=== PATIENT | male | born 1965 | race African-American/Black ===

== ENCOUNTER 2021-11-25 16:51 | Inpatient (IN) ==
[2021-11-25 16:58] VITALS: BMI 25.7
[2021-11-25] MEDS ORDERED: NS 1,000 ML IV 1,000 ML IV ONE (17:11)
[2021-11-25] MEDS ORDERED: NS 1,000 ML IV 1,000 ML ONE ×2 (17:12→21:47)
--- NOTE | 2021-11-25 17:37 | DR.GENAD ---
HPI Time Seen Time Seen by Provider: 11/25/21 17:23 PCP Primary Care Physician: KAMALJIT COLVIN HPI Comment HPI Comment: A 56 y/o male presenting with c/o generalized bodyaches, light headedness and weakness for 3 weeks. He had gone to the [facility] to be seen about a week ago and he was placed on an antibiotics for UTI. He had been in a hospital and then rehab. facility in [place], [place] for 2 months earlier this year and he came back home in July,. He was with healthcare provider today and a pulse could not be palpated in the Lt. foot, his left leg was warm, thus it was suggested that he goes to an ED to be seen. Complaint/Symptoms Chief Complaint:: STATES WITHIN THE PAST 2-3 WEEKS PT. HAS BEEN GETTING SICKER. SHE STATES PT. HAS AN UNSTEADY GAIT. PT. HAS HAD BLE SWELLING. PT. SEEN KAMALJIT MARII IN THE OFFICE TODAY AND STATES SHE COULD NOT PALPATE A PULSE TO RIGHT FOOT. SHE STATES THE LEFT LOWER EXREMITY WAS WARM TO TOUCH. STATES PT. HAS FALLEN RECENTLY. PT. C/O GENERALIZED PAIN, BLURRED VISION AND DIZZINESS. PT. WENT TO [facility] LAST WEEK AND HAD A URINARY CATHETER PLACED DUE TO URINARY RETENTION AND WAS DIAGNOSED WITH A UTI WHICH HE IS CURRENTLY TAKING ANTIBIOTICS FOR. COVID-19 Coronavirus risk:travel/contact w/high risk person: No Has patient experienced Coronavirus symptoms: No Nurses notes reviewed Nurses Notes Review: Yes Source History Provided: Patient and Family Member Mode of Arrival Mode of Arrival: Wheelchair Timing Onset of Chief Complaint: 11/04/21 Came on: Gradually PMH PMH Past Medical History: Yes Past Medical History: Diabetes Past Surgical History: Yes Surgical History: Other Family History History of Family Medical Conditions: Yes Family Medical History: Diabetes Mellitus Social History Does patient currently use any type of tobacco product: No Have you used tobacco products in the last 12 months: No Type of Tobacco Use: None Does any household member use tobacco: No Alcohol Use: None Do you use any recreational Drugs:: No Lives With: Spouse Lives Where: Home Travel Risk Coronavirus risk:travel/contact w/high risk person: No Has patient experienced Coronavirus symptoms: No Infectious screening In the last 2 months have you had wt loss of >10#?: NO Have you had fever, night sweats or hemotysis?: No Have you traveled outside the country in the last 6 months?: No Isolation: Standard ROS Review of Systems Constitutional: Weakness and Fatigue Eyes: No Symptoms Reported ENTM: No Symptoms Reported Respiratoy: No Symptoms Reported Cardiovascular: No Symptoms Reported Gastrointestinal/Abdominal: No Symptoms Reported Genitourinary: No Symptoms Reported Neurological: Weakness and Other (Light headed) Musculoskeletal: Other (bodyaches) Integumentary: No Symptoms Reported Hematologic/Lymphatic: No Symptoms Reported Endocrine: No Symptoms Reported Psychiatric: No Symptoms Reported All Other Systems: Reviewed and Negative PE Vital Signs Vitals: Temperature 99.2 F Pulse Rate 96 Respiratory Rate 17 Blood Pressure 114/62 O2 Sat by Pulse Oximetry 99 General Limitations: No Limitations General Appearance: Alert and In No Apparent Distress Head Head Exam: Normal Inspection, Atraumatic and Normocephalic Eyes Eye exam: Normal Appearance and EOMI ENT ENT Exam: Normal Exam, Normal Oropharynx, Normal External Ear Exam, Mucous Membranes Moist and TM's Normal Bilaterally TM/Canal Exam: Bilateral: Normal Neck Neck Exam: Normal Inspection, Full ROM and Trachea Midline Chest Chest Inspection: Normal Inspection and Symmetric Chest Wall Rise Respiratory Respiratory Exam: Normal Lung Sounds Bilat Respiratory Exam: Bilateral: Clear to Auscultation Cardiovascular Cardiovascular Exam: Regular Rate, Normal Rhythm, Normal Heart Sounds, +S1 and +S2 Abdominal Exam Abdominal Exam: Normal Inspection, Normal Bowel Sounds and Soft Extremities Extremities Exam: Normal Inspection and Full ROM Back Back Exam: Normal Inspection and Full ROM Neurologic Neurological Exam: Alert and Oriented X3 Psychiatric Psychiatric Exam: Normal Affect and Normal Mood Skin Skin Exam: Dry, Intact and Normal Color COURSE Treatment Treatment: I have reviewed the pt's. test results with him and his significant other. I recommended in-house placement for further evaluation and treatment. He is okay with my recommendation. I discussed presentation and findings with Dr. BABIN and he agrees with proposed plan of care. Admit orders have been written. Reevaluation 1st: Improved Education/Counseling Education/Counseling: Patient, Family, Education and Counseling Educated On: Treatment, Diagnosis, Prognosis and Needs for Follow Up ROR Labs Reviewed Laboratory Results Reviewed?: Yes Result Diagrams: 11/25/21 17:05 11/25/21 17:05 Laboratory: WBC 28.9 X10^3/uL (3.6-10.0) H 11/25/21 17:05 RBC 3.88 X10^6/uL (4.7-6.0) L 11/25/21 17:05 Hgb 10.7 g/dL (13.5-18.0) L 11/25/21 17:05 Hct 31.8 % (42.0-54.0) L 11/25/21 17:05 MCV 82.1 fL (80.0-100.0) 11/25/21 17:05 MCH 27.6 pg (27.0-34.0) 11/25/21 17:05 MCHC 33.7 g/dL (33.0-35.0) 11/25/21 17:05 RDW 13.8 % (11.6-16.5) 11/25/21 17:05 Plt Count 353 X10^3/uL (150.0-450.0) 11/25/21 17:05 Plt Count Comment Adequate (ADEQUATE) 11/25/21 17:05 MPV 9.1 fL (7.4-11.0) 11/25/21 17:05 Neut % (Auto) 87.4 % (42.0-75.0) H 11/25/21 17:05 Lymph % (Auto) 6.2 % (21.0-51.0) L 11/25/21 17:05 [place] % (Auto) 5.5 % (0.0-13.0) 11/25/21 17:05 Eos % (Auto) 0.2 % (0.9-2.9) L 11/25/21 17:05 Baso % (Auto) 0.7 % (0.2-1.0) 11/25/21 17:05 Neut # (Auto) 25.2 x10^3/uL (2.2-4.8) H 11/25/21 17:05 Lymph # (Auto) 1.8 X10^3/uL (1.3-2.9) 11/25/21 17:05 [place] # (Auto) 1.6 x10^3/uL (0.3-0.8) H 11/25/21 17:05 Eos # (Auto) 0.1 x10^3/uL (0.0-0.2) 11/25/21 17:05 Baso # (Auto) 0.2 X10^3/uL (0.0-0.1) H 11/25/21 17:05 Absolute Nucleated RBC 0.0 /100WBC 11/25/21 17:05 Total Counted 100 11/25/21 17:05 Neutrophils % (Manual) 86 % (39-76) H 11/25/21 17:05 Lymphocytes % (Manual) 10 % (13-43) L 11/25/21 17:05 Monocytes % (Manual) 4 % (4-9) 11/25/21 17:05 Plt Morphology Comment Normal (NORMAL) 11/25/21 17:05 RBC Morphology Normal (NORMAL) 11/25/21 17:05 Sodium 128 mmol/L (136-145) L 11/25/21 17:05 Corrected Sodium 133 mmol/L (136-145) L 11/25/21 17:05 Potassium 4.1 mmol/L (3.5-5.1) 11/25/21 17:05 Chloride 93 mmol/L (98-107) L 11/25/21 17:05 Carbon Dioxide 26.5 mmol/L (21-32) 11/25/21 17:05 BUN 25 mg/dL (7-18) H 11/25/21 17:05 Creatinine 1.69 mg/dL (0.70-1.30) H 11/25/21 17:05 Est GFR (MDRD) Af Amer 54 (>60) L 11/25/21 17:05 Est GFR (MDRD) Non-Af 45 (>60) L 11/25/21 17:05 Glucose 295 mg/dL (65-99) H 11/25/21 17:05 Lactic Acid 2.4 mmol/L (0.4-2.0) H 11/25/21 17:05 Calcium 9.3 mg/dL (8.5-10.1) 11/25/21 17:05 Corrected Calcium 10.3 mg/dL (8.5-10.1) H 11/25/21 17:05 Total Bilirubin 0.40 mg/dL (0.2-1.0) 11/25/21 17:05 AST 15 Units/L (15-37) 11/25/21 17:05 ALT 13 Units/L (12-78) 11/25/21 17:05 Alkaline Phosphatase 130 Units/L (46-116) H 11/25/21 17:05 Total Protein 9.3 g/dL (6.4-8.2) H 11/25/21 17:05 Albumin 2.7 g/dL (3.4-5.0) L 11/25/21 17:05 Globulin 6.6 g/dL (2.5-4.5) H 11/25/21 17:05 Albumin/Globulin Ratio 0.4 Ratio (1.1-2.1) L 11/25/21 17:05 Specimen Type Clean catch urine 11/25/21 18:11 Urine Color Pale yellow (YELLOW) 11/25/21 18:11 Urine Appearance Clear (CLEAR) 11/25/21 18:11 Urine pH 6.0 (5.0 - 8.0) 11/25/21 18:11 Ur Specific [place] 1.020 (1.000-1.030) 11/25/21 18:11 Urine Protein 3+ (NEGATIVE) 11/25/21 18:11 Urine Glucose (UA) 4+ (NEGATIVE) 11/25/21 18:11 Urine Ketones 1+ (NEGATIVE) 11/25/21 18:11 Urine Blood 4+ (NEGATIVE) 11/25/21 18:11 Urine Nitrite Negative (NEGATIVE) 11/25/21 18:11 Urine Bilirubin Negative (NEGATIVE) 11/25/21 18:11 Urine Urobilinogen Normal (NORMAL) 11/25/21 18:11 Ur Leukocyte Esterase Negative (NEGATIVE) 11/25/21 18:11 Urine RBC 5-10 /HPF (0-3) A 11/25/21 18:11 Urine WBC None seen /HPF (0-5) 11/25/21 18:11 Ur Squamous Epith Cells Rare /HPF (NEGATIVE) 11/25/21 18:11 Urine Bacteria Trace /HPF (NEGATIVE) 11/25/21 18:11 Urine Yeast Few /HPF (NEGATIVE) 11/25/21 18:11 Ur Culture Indicated? No/not indicated 11/25/21 18:11 SARS-CoV-2 (PCR) Negative (NEGATIVE) 11/25/21 17:11 Influenza Type A (PCR) Negative (NEGATIVE) 11/25/21 17:11 Influenza Type B (PCR) Negative (NEGATIVE) 11/25/21 17:11 RSV (PCR) Negative (NEGATIVE) 11/25/21 17:11 XRAY XRAY Interpreted by: Self X-ray Results: CXR: No gross infiltrate, noted. There is no cardiomegaly. Radiology report is pending. Opioid Opioid Risk Tool Age (Collin box if 16-45): No History of Preadolescent Sexual Abuse: No Total: 0 Total Score Risk Category: Low Risk Copyright: [facility] predicting aberrant behaviors Discharge Plan Diagnosis Discharge Problem: Neutrophilic leukocytosis, Acute hyponatremia, Dehydration Discharge Plan Patient Disposition: ADMITTED INPATIENT Condition: Stable Health Concerns: Post Hospitalization: new medications and changes needed to prevent readmission or further decline. Pt educated and given instructions on all concerns. Plan of Treatment: Continue with present treatment and follow up plan. Pt is to keep follow up appointment as instructed and take medications as ordered. Orders to Discharge Patient Discharge Orders: Transfer (Routine); Ordered 11/25/21 Ordered By: WENDY CHOWDHURY Follow ups/Referrals Follow ups/Referrals: DOUG HONEYCUTT [Primary Care Provider] - 3 days ADDITIONAL NOTES Additional Notes Additional Notes: Name: Jaycee SOSA#: [id number]: [id number]: 1965Sex: MLocation: EROrder Number(s): [id number](s):CHEST, 1 VIEW Ordering Physician: WENDY CHOWDHURY Primary Care: DOUG HONEYCUTT Service Date: 11/25/21 Service Time: 1723 HISTORY C/O GENERALIZED PAIN, BLURRED VISION AND DIZZINESS. Relevant Clinical Information STUDY CHEST, 1 VIEW COMPARISON FINDINGS The trachea is midline. The cardiac silhouette is unremarkable. The lungs are clear without focal infiltrate or effusion. The bony thorax is unremarkable. IMPRESSION No acute cardiopulmonary findings . Electronically signed by: Arley Bird (Nov 25, 2021 17:51:17) Report Electronically signed: 11/25/21 0632 CC: Wendy Chowdhury
[2021-11-25 17:39] LABS: BASOPHILS # (AUTO) 0.2 X10^3/uL (0.0-0.1); BASOPHILS % (AUTO) 0.7 % (0.2-1.0); EOSINOPHILS # (AUTO) 0.1 x10^3/uL (0.0-0.2); EOSINOPHILS % (AUTO) 0.2 % (0.9-2.9); HEMATOCRIT 31.8 % (42.0-54.0); HEMOGLOBIN 10.7 g/dL (13.5-18.0); LYMPHOCYTES # (AUTO) 1.8 X10^3/uL (1.3-2.9); LYMPHOCYTES % (AUTO) 6.2 % (21.0-51.0); MEAN CORPUSCULAR HEMOGLOBIN 27.6 pg (27.0-34.0); MEAN CORPUSCULAR HGB CONC 33.7 g/dL (33.0-35.0); MEAN CORPUSCULAR VOLUME 82.1 fL (80.0-100.0); MEAN PLATELET VOLUME 9.1 fL (7.4-11.0); MONOCYTES # (AUTO) 1.6 x10^3/uL (0.3-0.8); MONOCYTES % (AUTO) 5.5 % (0.0-13.0); NEUTROPHILS # (AUTO) 25.2 x10^3/uL (2.2-4.8); NEUTROPHILS % (AUTO) 87.4 % (42.0-75.0); RED BLOOD COUNT 3.88 X10^6/uL (4.7-6.0); RED CELL DISTRIBUTION WIDTH 13.8 % (11.6-16.5); WHITE BLOOD COUNT 28.9 X10^3/uL (3.6-10.0)
[2021-11-25 17:50] LABS: ALBUMIN 2.7 g/dL (3.4-5.0); CALCIUM 9.3 mg/dL (8.5-10.1); CARBON DIOXIDE 26.5 mmol/L (21-32); COR CA(FOR HYPOALB) 10.3 mg/dL (8.5-10.1); CREATININE 1.69 mg/dL (0.70-1.30); TOTAL PROTEIN 9.3 g/dL (6.4-8.2)
--- NOTE | 2021-11-25 17:52 | RAD ---
HISTORYC/O GENERALIZED PAIN, BLURRED VISION AND DIZZINESS. Relevant Clinical InformationSTUDYCHEST, 1 VIEWCOMPARISONFINDINGSThe trachea is midline. The cardiac silhouette is unremarkable. The lungs are clear without focal infiltrate or effusion. The bony thorax is unremarkable.IMPRESSIONNo acute cardiopulmonary findings .Electronically signed by: Arley Bird (Nov 25, 2021 17:51:17)
[2021-11-25 17:58] LABS: PLATELET MORPHOLOGY COMMENT NORMAL (NORMAL)
[2021-11-25 18:30] LABS: BILIRUBIN,URINE NEGATIVE (NEGATIVE); BLOOD/HEMOGLOBIN,URINE 4+ (NEGATIVE); GLUCOSE, URINE 4+ (NEGATIVE); KETONES,URINE 1+ (NEGATIVE); LEUKOCYTE ESTERASE ,URINE NEGATIVE (NEGATIVE); NITRITES,URINE NEGATIVE (NEGATIVE); PROTEIN,URINE 3+ (NEGATIVE); UROBILINOGEN,URINE NORMAL (NORMAL)
[2021-11-25 18:43] LABS: APPEARANCE,URINE CLEAR (CLEAR); COLOR,URINE PALE YELLOW (YELLOW)
[2021-11-25 18:44] LABS: BACTERIA,URINE TRACE /HPF (NEGATIVE); SQUAMOUS EPITHELIAL CELL,UR RARE /HPF (NEGATIVE); YEAST,URINE FEW /HPF (NEGATIVE)
[2021-11-25] MEDS ORDERED: ZOSYN VIAL 3.375 GRAMS IV ONE (21:47)
[2021-11-25] MEDS ORDERED: NS 100 ML IV 100 ML ONE (21:48)
[2021-11-25] MEDS: NS 1,000 ML IV 1,000 ML IV SCH (21:55)
[2021-11-25] MEDS: ZOSYN VIAL 3.375 GRAMS 3.375 G in NS 100 ML IV 100 ML IV SCH ×2 (21:56→23:57)
[2021-11-26] MEDS: NovoLIN R (or HumuLIN R) SUBCUT PRN ×4 (00:01→20:41)
[2021-11-26] MEDS: NS 1,000 ML IV 1,000 ML IV SCH ×4 (05:23→20:41)
[2021-11-26] MEDS: ZOSYN VIAL 3.375 GRAMS 3.375 G in NS 100 ML IV 100 ML IV SCH (05:28)
[2021-11-26 06:26] LABS: BASOPHILS % (AUTO) 0.2 % (0.2-1.0); EOSINOPHILS # (AUTO) 0.2 x10^3/uL (0.0-0.2); EOSINOPHILS % (AUTO) 0.9 % (0.9-2.9); HEMATOCRIT 27.7 % (42.0-54.0); HEMOGLOBIN 9.4 g/dL (13.5-18.0); LYMPHOCYTES # (AUTO) 2.2 X10^3/uL (1.3-2.9); LYMPHOCYTES % (AUTO) 10.1 % (21.0-51.0); MEAN CORPUSCULAR HGB CONC 33.9 g/dL (33.0-35.0); MEAN CORPUSCULAR VOLUME 82.5 fL (80.0-100.0); MEAN PLATELET VOLUME 8.7 fL (7.4-11.0); MONOCYTES % (AUTO) 9.2 % (0.0-13.0); NEUTROPHILS # (AUTO) 17.8 x10^3/uL (2.2-4.8); NEUTROPHILS % (AUTO) 79.6 % (42.0-75.0); RED BLOOD COUNT 3.35 X10^6/uL (4.7-6.0); RED CELL DISTRIBUTION WIDTH 13.8 % (11.6-16.5); WHITE BLOOD COUNT 22.3 X10^3/uL (3.6-10.0)
[2021-11-26 06:39] LABS: ALANINE AMINOTRANSFERASE 12 Units/L (12-78); ALBUMIN 2.1 g/dL (3.4-5.0); ALKALINE PHOSPHATASE 109 Units/L (46-116); ASPARTATE AMINO TRANSFERASE 14 Units/L (15-37); BLOOD UREA NITROGEN 18 mg/dL (7-18); CALCIUM 8.5 mg/dL (8.5-10.1); CHLORIDE 99 mmol/L (98-107); COR NA(FOR HYPERGLY) 138 mmol/L (136-145); CREATININE 1.35 mg/dL (0.70-1.30); SODIUM 134 mmol/L (136-145); TOTAL PROTEIN 7.7 g/dL (6.4-8.2); eGFR NON BLACK RACES 58 (>60)
[2021-11-26 07:07] LABS: BAND NEUTROPHILS % 5 % (0-10); PLATELET MORPHOLOGY COMMENT NORMAL (NORMAL)
[2021-11-26] MEDS: RIFADIN PO SCH ×2 (11:55→20:37)
[2021-11-26] MEDS: CIPRO IV 400 MG PREMIX* 400 MG/200 ML IV.SOLN. IV SCH ×2 (11:55→20:37)
--- NOTE | 2021-11-26 13:17 | DR.H&P ---
H&P History & Physical for Day of: H&P Date: 11/26/21 Chief Complaint Chief Complaint: Getting sicker for the last 2 to 3 weeks Allergies Allergies Allergy/AdvReac Type Severity Reaction Status Date / Time No Known Drug Allergies Allergy Verified 11/25/21 16:58 History of Present Illness History of Present Illness: This is a pleasant 56-year-old black male who pres ented to the emergency department with a chief complaint of getting sicker for the last 2 to 3 weeks per his . He had gone to the emergency department in [place], [place] recently in which they diagnosed him with a urinary tract infection. He was started on antibiotics which I do not know what they were at this time he does not remember the name of them. Urinalysis today does not show any urinary tract infection as no white blood cells were seen. However he did have trace of bacteria and he was positive for small yeast in the urine. He did have 1+ ketones and positive for blood and protein. His white blood cell count was 20,900 coming in the emergency department yesterday. Because of this he was empirically started on Zosyn by the ER physician. Upon further discussion with the patient he also reports being hospitalized for 1 month in [place] earlier this year and had 1 month inpatient rehab stay in [facility] as well after that. He is a known diabetic and he did see his nurse practitioner for primary care yesterday in [place], [place] and she reported that she could not find a pulse on the right foot and instructed him to go to the emergency department for further treatment evaluation. In the emergency department they were unable to find dorsalis pedis pulses but his feet were warm bilaterally. He he does have a small ecchymosis on the right medial foot is probably no larger than 2 cm. This morning the patient reports he is feeling little better but still weak and tired and is noted his white blood cell count has come down to 22,300 since coming to the ER yesterday. His creatinine is down since coming in yesterday to 1.35 this morning indicating he was mildly dehydrated coming in. This morning we will get a hold of [facility] and try to obtain his recent urine culture and sensitivity report that he had from his most recent ER visit to make sure that he is being treated appropriately with a right antibiotics. Past Medical History Past Medical History: Diabetes Past Surgical History Surgical History: Other Family History Family Medical History: Diabetes Mellitus Social History Does patient currently use any type of tobacco product: No Have you used tobacco products in the last 12 months: No Type of Tobacco Use: None Does any household member use tobacco: No Alcohol Use: None Drug Use: None Medications Home Medications: No Known Drug Allergies Allergy (Verified 11/25/21 16:58) Labs Result Diagrams: 11/26/21 05:30 11/26/21 05:30 Labs: Laboratory WBC 22.3 X10^3/uL (3.6-10.0) H 11/26/21 05:30 RBC 3.35 X10^6/uL (4.7-6.0) L 11/26/21 05:30 Hgb 9.4 g/dL (13.5-18.0) L 11/26/21 05:30 Hct 27.7 % (42.0-54.0) L 11/26/21 05:30 MCV 82.5 fL (80.0-100.0) 11/26/21 05:30 MCH 28.0 pg (27.0-34.0) 11/26/21 05:30 MCHC 33.9 g/dL (33.0-35.0) 11/26/21 05:30 RDW 13.8 % (11.6-16.5) 11/26/21 05:30 Plt Count 309 X10^3/uL (150.0-450.0) 11/26/21 05:30 Plt Count Comment Adequate (ADEQUATE) 11/26/21 05:30 MPV 8.7 fL (7.4-11.0) 11/26/21 05:30 Neut % (Auto) 79.6 % (42.0-75.0) H 11/26/21 05:30 Lymph % (Auto) 10.1 % (21.0-51.0) L 11/26/21 05:30 [place] % (Auto) 9.2 % (0.0-13.0) 11/26/21 05:30 Eos % (Auto) 0.9 % (0.9-2.9) 11/26/21 05:30 Baso % (Auto) 0.2 % (0.2-1.0) 11/26/21 05:30 Neut # (Auto) 17.8 x10^3/uL (2.2-4.8) H 11/26/21 05:30 Lymph # (Auto) 2.2 X10^3/uL (1.3-2.9) 11/26/21 05:30 [place] # (Auto) 2.0 x10^3/uL (0.3-0.8) H 11/26/21 05:30 Eos # (Auto) 0.2 x10^3/uL (0.0-0.2) 11/26/21 05:30 Baso # (Auto) 0.0 X10^3/uL (0.0-0.1) 11/26/21 05:30 Absolute Nucleated RBC 0.0 /100WBC 11/26/21 05:30 Total Counted 100 11/26/21 05:30 Neutrophils % (Manual) 83 % (39-76) H 11/26/21 05:30 Band Neutrophils % 5 % (0-10) 11/26/21 05:30 Lymphocytes % (Manual) 8 % (13-43) L 11/26/21 05:30 Monocytes % (Manual) 4 % (4-9) 11/26/21 05:30 Plt Morphology Comment Normal (NORMAL) 11/26/21 05:30 RBC Morphology Normal (NORMAL) 11/26/21 05:30 Sodium 134 mmol/L (136-145) L 11/26/21 05:30 Corrected Sodium 138 mmol/L (136-145) 11/26/21 05:30 Potassium 3.6 mmol/L (3.5-5.1) 11/26/21 05:30 Chloride 99 mmol/L (98-107) 11/26/21 05:30 Carbon Dioxide 28.0 mmol/L (21-32) 11/26/21 05:30 BUN 18 mg/dL (7-18) 11/26/21 05:30 Creatinine 1.35 mg/dL (0.70-1.30) H 11/26/21 05:30 Est GFR (MDRD) Af Amer > 60 (>60) 11/26/21 05:30 Est GFR (MDRD) Non-Af 58 (>60) L 11/26/21 05:30 Glucose 271 mg/dL (65-99) H 11/26/21 05:30 POC Glucose (mg/dL) 184 mg/dL (65-99) H 11/26/21 11:28 Lactic Acid 2.4 mmol/L (0.4-2.0) H 11/25/21 17:05 Calcium 8.5 mg/dL (8.5-10.1) 11/26/21 05:30 Corrected Calcium 10.0 mg/dL (8.5-10.1) 11/26/21 05:30 Total Bilirubin 0.30 mg/dL (0.2-1.0) 11/26/21 05:30 AST 14 Units/L (15-37) L 11/26/21 05:30 ALT 12 Units/L (12-78) 11/26/21 05:30 Alkaline Phosphatase 109 Units/L (46-116) 11/26/21 05:30 Total Protein 7.7 g/dL (6.4-8.2) 11/26/21 05:30 Albumin 2.1 g/dL (3.4-5.0) L 11/26/21 05:30 Globulin 5.6 g/dL (2.5-4.5) H 11/26/21 05:30 Albumin/Globulin Ratio 0.4 Ratio (1.1-2.1) L 11/26/21 05:30 Specimen Type Clean catch urine 11/25/21 18:11 Urine Color Pale yellow (YELLOW) 11/25/21 18:11 Urine Appearance Clear (CLEAR) 11/25/21 18:11 Urine pH 6.0 (5.0 - 8.0) 11/25/21 18:11 Ur Specific [place] 1.020 (1.000-1.030) 11/25/21 18:11 Urine Protein 3+ (NEGATIVE) 11/25/21 18:11 Urine Glucose (UA) 4+ (NEGATIVE) 11/25/21 18:11 Urine Ketones 1+ (NEGATIVE) 11/25/21 18:11 Urine Blood 4+ (NEGATIVE) 11/25/21 18:11 Urine Nitrite Negative (NEGATIVE) 11/25/21 18:11 Urine Bilirubin Negative (NEGATIVE) 11/25/21 18:11 Urine Urobilinogen Normal (NORMAL) 11/25/21 18:11 Ur Leukocyte Esterase Negative (NEGATIVE) 11/25/21 18:11 Urine RBC 5-10 /HPF (0-3) A 11/25/21 18:11 Urine WBC None seen /HPF (0-5) 11/25/21 18:11 Ur Squamous Epith Cells Rare /HPF (NEGATIVE) 11/25/21 18:11 Urine Bacteria Trace /HPF (NEGATIVE) 11/25/21 18:11 Urine Yeast Few /HPF (NEGATIVE) 11/25/21 18:11 Ur Culture Indicated? No/not indicated 11/25/21 18:11 SARS-CoV-2 (PCR) Negative (NEGATIVE) 11/25/21 17:11 Influenza Type A (PCR) Negative (NEGATIVE) 11/25/21 17:11 Influenza Type B (PCR) Negative (NEGATIVE) 11/25/21 17:11 RSV (PCR) Negative (NEGATIVE) 11/25/21 17:11 Review of Systems Constitutional: Weakness and Malaise Eyes: No Symptoms Reported ENT: No Symptoms Reported Respiratory: No Symptoms Reported Cardiovascular: No Symptoms Reported Gastrointestinal: No Symptoms Reported Genitourinary: No Symptoms Reported Musculoskeletal: Other (Generalized body aches) Skin: Bruising Neurological: Weakness Physical Exam Vital Signs: Temperature 98.7 F Pulse Rate [Brachial] 80 Pulse Rate 97 Respiratory Rate 18 Blood Pressure [Left Arm] 117/68 Blood Pressure 107/58 O2 Sat by Pulse Oximetry 99 Oriented: Normal, Time, Person and Place Eyes: Normal Ear: Normal Nose: Normal Throat: Normal Respiratory: Clear Throughout Cardiovascular: Normal : Other (Deferred) Palpation: Normal Tenderness: Normal Skin: Decreased Turgur Musculoskeletal: Normal Psychiatric: Normal Mood Description: Calm Affect: Normal Speech Pattern: Clear and Appropriate Assessment/Plan (1) Neutrophilic leukocytosis: Narrative Support Text: We did receive the urine culture and sensitivity from the recent ER visit in [place], [place]. The results show that he grew out MRSA and it is sensitive to rifampin and Cipro. Status: Acute Plan: DC IV Zosyn and changed to p.o. Cipro 300 mg twice daily and IV Cipro 400 mg IV every 12 hours. (2) Acute hyponatremia: Narrative Support Text: Patient's sodium level is improved this morning from 1 20-1 34. He is nearly normalized we will continue him on normal saline IV fluid. Once is normalized we will plan on discharging home tomorrow morning. Status: Acute Plan: Normal saline IV fluid. Recheck CMP in the morning. (3) Dehydration: Status: Acute Plan: IV hydration with normal saline IV fluid. Review H&P Reviewed: Yes Patient was examined?: Yes
[2021-11-27] MEDS: NS 1,000 ML IV 1,000 ML IV SCH ×4 (03:17→18:45)
[2021-11-27] MEDS: NovoLIN R (or HumuLIN R) SUBCUT PRN ×3 (05:46→16:17)
[2021-11-27 06:30] LABS: BASOPHILS # (AUTO) 0.1 X10^3/uL (0.0-0.1); BASOPHILS % (AUTO) 0.3 % (0.2-1.0); EOSINOPHILS # (AUTO) 0.2 x10^3/uL (0.0-0.2); HEMATOCRIT 28.1 % (42.0-54.0); HEMOGLOBIN 9.3 g/dL (13.5-18.0); LYMPHOCYTES % (AUTO) 9.6 % (21.0-51.0); MEAN CORPUSCULAR HEMOGLOBIN 27.4 pg (27.0-34.0); MEAN CORPUSCULAR HGB CONC 33.2 g/dL (33.0-35.0); MEAN CORPUSCULAR VOLUME 82.5 fL (80.0-100.0); MEAN PLATELET VOLUME 8.9 fL (7.4-11.0); MONOCYTES # (AUTO) 1.8 x10^3/uL (0.3-0.8); MONOCYTES % (AUTO) 8.8 % (0.0-13.0); NEUTROPHILS # (AUTO) 16.7 x10^3/uL (2.2-4.8); NEUTROPHILS % (AUTO) 80.3 % (42.0-75.0); RED CELL DISTRIBUTION WIDTH 13.7 % (11.6-16.5); WHITE BLOOD COUNT 20.7 X10^3/uL (3.6-10.0)
[2021-11-27 06:36] LABS: ALANINE AMINOTRANSFERASE 9 Units/L (12-78); ALKALINE PHOSPHATASE 110 Units/L (46-116); ASPARTATE AMINO TRANSFERASE 12 Units/L (15-37); BLOOD UREA NITROGEN 13 mg/dL (7-18); CALCIUM 8.2 mg/dL (8.5-10.1); CARBON DIOXIDE 25.6 mmol/L (21-32); CHLORIDE 100 mmol/L (98-107); COR CA(FOR HYPOALB) 9.8 mg/dL (8.5-10.1); COR NA(FOR HYPERGLY) 140 mmol/L (136-145); CREATININE 1.18 mg/dL (0.70-1.30); SODIUM 134 mmol/L (136-145); TOTAL PROTEIN 7.4 g/dL (6.4-8.2); eGFR NON BLACK RACES > 60 (>60)
[2021-11-27] MEDS: NEURONTIN CAP 300 MG PO SCH ×3 (09:41→21:00)
[2021-11-27] MEDS: CIPRO IV 400 MG PREMIX* 400 MG/200 ML IV.SOLN. IV SCH ×2 (09:42→20:29)
[2021-11-27] MEDS: RIFADIN PO SCH ×2 (09:42→20:29)
[2021-11-27] MEDS: LEVEMIR SC SCH ×2 (11:24→20:29)
--- NOTE | 2021-11-27 13:42 | PCM.PROG ---
Progress Note Progress Note for Day of Date of Exam: 11/27/21 Subjective Subjective: The patient is lying in bed this morning. He reports he is feeling a little better but he still having burning and stinging in his feet. He does report a history of peripheral neuropathy from his diabetes. I will go ahead and start him on gabapentin 300 mg every 8 hours for his peripheral neuropathy. His white blood cell count has gone down since yesterday but he is still elevated at 20,700. Yesterday he was 22,300. The patient is on Cipro and p.o. rifampin because the urine culture and sensitivity from the [place] emergency department from last week indicated the patient had MRSA in the urine and it was sensitive to Cipro and rifampin. I am concerned about his white blood cell count trending down slowly so I am going to start him on IV linezolid today. His blood sugar has also been elevated greater than 300 today. I will also going to start him on Levemir 10 units every 12 hours for better blood sugar control as well. Patient will not be able to go home today and will need an additional 1 to 3 days of treatment in the hospital. Past Medical Family Social History Allergies: Allergies No Known Drug Allergies Allergy (Verified 11/25/21 16:58) Review of Systems ROS: Changes notes (describe) (Patient reports increased burning and stinging in his feet and lower legs.) Vital Signs and I&O's Vital Signs: Temperature 98.0 F Pulse Rate [Brachial] 80 Pulse Rate 97 Respiratory Rate 18 Blood Pressure [Left Arm] 118/70 Blood Pressure 107/58 O2 Sat by Pulse Oximetry 99 Intake and Output: Intake & Output 11/25/21 11/26/21 11/27/21 11/28/21 11:59 11:59 11:59 11:59 Intake Total 1159 / 1159 3196 / 3196 Output Total 1100 / 1100 Balance 1159 / 1159 6 / 209 Physical Exam Oriented: Normal, Time, Person and Place Eyes: Normal Ear: Normal Nose: Normal Throat: Normal Respiratory: Normal Cardiovascular: Normal : Other (Deferred) Tenderness: Normal Skin: Decreased Turgur Musculoskeletal: Normal Psychiatric: Normal Mood Description: Calm Affect: Normal Speech Pattern: Clear and Appropriate Laboratory and Diagnostics Result Diagrams: 11/27/21 05:57 11/27/21 05:57 Labs: 11/25/21 17:15 Blood Blood Culture - Preliminary 11/25/21 17:05 Blood Blood Culture - Preliminary 11/25/21 11:04 Urine,Clean Catch Urine Culture - Preliminary Laboratory WBC 20.7 X10^3/uL (3.6-10.0) H 11/27/21 05:57 RBC 3.40 X10^6/uL (4.7-6.0) L 11/27/21 05:57 Hgb 9.3 g/dL (13.5-18.0) L 11/27/21 05:57 Hct 28.1 % (42.0-54.0) L 11/27/21 05:57 MCV 82.5 fL (80.0-100.0) 11/27/21 05:57 MCH 27.4 pg (27.0-34.0) 11/27/21 05:57 MCHC 33.2 g/dL (33.0-35.0) 11/27/21 05:57 RDW 13.7 % (11.6-16.5) 11/27/21 05:57 Plt Count 331 X10^3/uL (150.0-450.0) 11/27/21 05:57 Plt Count Comment Adequate (ADEQUATE) 11/26/21 05:30 MPV 8.9 fL (7.4-11.0) 11/27/21 05:57 Neut % (Auto) 80.3 % (42.0-75.0) H 11/27/21 05:57 Lymph % (Auto) 9.6 % (21.0-51.0) L 11/27/21 05:57 [place] % (Auto) 8.8 % (0.0-13.0) 11/27/21 05:57 Eos % (Auto) 1.0 % (0.9-2.9) 11/27/21 05:57 Baso % (Auto) 0.3 % (0.2-1.0) 11/27/21 05:57 Neut # (Auto) 16.7 x10^3/uL (2.2-4.8) H 11/27/21 05:57 Lymph # (Auto) 2.0 X10^3/uL (1.3-2.9) 11/27/21 05:57 [place] # (Auto) 1.8 x10^3/uL (0.3-0.8) H 11/27/21 05:57 Eos # (Auto) 0.2 x10^3/uL (0.0-0.2) 11/27/21 05:57 Baso # (Auto) 0.1 X10^3/uL (0.0-0.1) 11/27/21 05:57 Absolute Nucleated RBC 0.0 /100WBC 11/27/21 05:57 Total Counted 100 11/26/21 05:30 Neutrophils % (Manual) 83 % (39-76) H 11/26/21 05:30 Band Neutrophils % 5 % (0-10) 11/26/21 05:30 Lymphocytes % (Manual) 8 % (13-43) L 11/26/21 05:30 Monocytes % (Manual) 4 % (4-9) 11/26/21 05:30 Plt Morphology Comment Normal (NORMAL) 11/26/21 05:30 RBC Morphology Normal (NORMAL) 11/26/21 05:30 Sodium 134 mmol/L (136-145) L 11/27/21 05:57 Corrected Sodium 140 mmol/L (136-145) 11/27/21 05:57 Potassium 3.9 mmol/L (3.5-5.1) 11/27/21 05:57 Chloride 100 mmol/L (98-107) 11/27/21 05:57 Carbon Dioxide 25.6 mmol/L (21-32) 11/27/21 05:57 BUN 13 mg/dL (7-18) 11/27/21 05:57 Creatinine 1.18 mg/dL (0.70-1.30) 11/27/21 05:57 Est GFR (MDRD) Af Amer > 60 (>60) 11/27/21 05:57 Est GFR (MDRD) Non-Af > 60 (>60) 11/27/21 05:57 Glucose 332 mg/dL (65-99) H 11/27/21 05:57 POC Glucose (mg/dL) 269 mg/dL (65-99) H 11/27/21 11:05 Lactic Acid 2.4 mmol/L (0.4-2.0) H 11/25/21 17:05 Calcium 8.2 mg/dL (8.5-10.1) L 11/27/21 05:57 Corrected Calcium 9.8 mg/dL (8.5-10.1) 11/27/21 05:57 Total Bilirubin 0.40 mg/dL (0.2-1.0) 11/27/21 05:57 AST 12 Units/L (15-37) L 11/27/21 05:57 ALT 9 Units/L (12-78) L 11/27/21 05:57 Alkaline Phosphatase 110 Units/L (46-116) 11/27/21 05:57 Total Protein 7.4 g/dL (6.4-8.2) 11/27/21 05:57 Albumin 2.0 g/dL (3.4-5.0) L 11/27/21 05:57 Globulin 5.4 g/dL (2.5-4.5) H 11/27/21 05:57 Albumin/Globulin Ratio 0.4 Ratio (1.1-2.1) L 11/27/21 05:57 Specimen Type Clean catch urine 11/25/21 18:11 Urine Color Pale yellow (YELLOW) 11/25/21 18:11 Urine Appearance Clear (CLEAR) 11/25/21 18:11 Urine pH 6.0 (5.0 - 8.0) 11/25/21 18:11 Ur Specific [place] 1.020 (1.000-1.030) 11/25/21 18:11 Urine Protein 3+ (NEGATIVE) 11/25/21 18:11 Urine Glucose (UA) 4+ (NEGATIVE) 11/25/21 18:11 Urine Ketones 1+ (NEGATIVE) 11/25/21 18:11 Urine Blood 4+ (NEGATIVE) 11/25/21 18:11 Urine Nitrite Negative (NEGATIVE) 11/25/21 18:11 Urine Bilirubin Negative (NEGATIVE) 11/25/21 18:11 Urine Urobilinogen Normal (NORMAL) 11/25/21 18:11 Ur Leukocyte Esterase Negative (NEGATIVE) 11/25/21 18:11 Urine RBC 5-10 /HPF (0-3) A 11/25/21 18:11 Urine WBC None seen /HPF (0-5) 11/25/21 18:11 Ur Squamous Epith Cells Rare /HPF (NEGATIVE) 11/25/21 18:11 Urine Bacteria Trace /HPF (NEGATIVE) 11/25/21 18:11 Urine Yeast Few /HPF (NEGATIVE) 11/25/21 18:11 Ur Culture Indicated? No/not indicated 11/25/21 18:11 SARS-CoV-2 (PCR) Negative (NEGATIVE) 11/25/21 17:11 Influenza Type A (PCR) Negative (NEGATIVE) 11/25/21 17:11 Influenza Type B (PCR) Negative (NEGATIVE) 11/25/21 17:11 RSV (PCR) Negative (NEGATIVE) 11/25/21 17:11 Plan (1) Neutrophilic leukocytosis: Status: Acute Narrative Support Text: I feel like the patient's neutrophilic leukocytosis has come from MRSA urinary tract infection. He had a urine culture and sensitivity done on November 17, 2021. The [employer] shows an OPHELIA of less than 1 for ciprofloxacin and rifampin. The patient is leukocytosis has come down from nearly 29,002 days ago on admission to 20,700 this morning. The patient is urine culture from the ER 2 days ago showed gram- positive cocci but CFU less than 100,000. However the patient has been on antibiotics prescribed to him from his emergency department visit in [place], [place] last week. However we do not know which antibiotic he was taking at that time. It looks like he has an incompletely treated urinary tract infection secondary to MRSA. Plan: Continue rifampin 300 mg twice daily and IV Cipro 400 mg IV every 12 hours. Recheck CBC in a.m. I am going to check another repeat chest x-ray today to make sure that he is not trying to develop a pneumonia that we did not see on the initial chest x-ray coming in. (2) Acute hyponatremia: Status: Resolved Narrative Support Text: The patient's hyponatremia has resolved today. Plan: Change normal saline IV fluid to KVO today. (3) Dehydration: Status: Acute Narrative Support Text: Patient is rehydrated but reviewed his BUN/creatinine today. Plan: I will decrease patient's IV fluids to KVO today. (4) Diabetes mellitus type 2, insulin dependent: Status: Acute Narrative Support Text: Blood sugars are increased greater than 300 today. Plan: I will add Levemir 10 units subcutaneous every 12 hours for better blood sugar control this morning. (5) Diabetic peripheral neuropathy: Status: Acute Plan: I am starting the patient on gabapentin 300 mg every 8 hours for his peripheral neuropathy.
--- NOTE | 2021-11-27 15:04 | RAD ---
HISTORYelevated white blood count Relevant Clinical InformationSTUDYCHEST, 1 [id number]/03/2022FINDINGSTrachea is midline. The heart is borderline in size. There is chronic elevation of the right diaphragm. There is no evidence of focal pneumonia, pneumothorax or pleural effusions. Osseus structures are unremarkableIMPRESSIONNo acute cardiopulmonary findings. Mild chronic elevation of the right diaphragm. No evidence of dominant alveolar radiopacityElectronically signed by: Bea Velazquez (Nov 27, 2021 15:02:49)
[2021-11-27] MEDS: SNACK - Diabetic Appropriate PO SCH (19:57)
[2021-11-28] MEDS: ZYVOX 600MG IV 600 MG/300 ML BAG IV SCH ×2 (01:40→21:25)
[2021-11-28] MEDS: NEURONTIN CAP 300 MG PO SCH ×3 (05:41→21:20)
[2021-11-28 06:45] LABS: BASOPHILS # (AUTO) 0.1 X10^3/uL (0.0-0.1); BASOPHILS % (AUTO) 0.5 % (0.2-1.0); EOSINOPHILS # (AUTO) 0.3 x10^3/uL (0.0-0.2); EOSINOPHILS % (AUTO) 1.6 % (0.9-2.9); HEMATOCRIT 29.2 % (42.0-54.0); HEMOGLOBIN 9.7 g/dL (13.5-18.0); LYMPHOCYTES # (AUTO) 1.8 X10^3/uL (1.3-2.9); LYMPHOCYTES % (AUTO) 10.3 % (21.0-51.0); MEAN CORPUSCULAR HEMOGLOBIN 27.8 pg (27.0-34.0); MEAN CORPUSCULAR HGB CONC 33.3 g/dL (33.0-35.0); MEAN CORPUSCULAR VOLUME 83.6 fL (80.0-100.0); MEAN PLATELET VOLUME 8.8 fL (7.4-11.0); MONOCYTES # (AUTO) 1.4 x10^3/uL (0.3-0.8); MONOCYTES % (AUTO) 8.5 % (0.0-13.0); NEUTROPHILS # (AUTO) 13.4 x10^3/uL (2.2-4.8); NEUTROPHILS % (AUTO) 79.1 % (42.0-75.0)
[2021-11-28 07:01] LABS: ALANINE AMINOTRANSFERASE 8 Units/L (12-78); ALKALINE PHOSPHATASE 112 Units/L (46-116); ASPARTATE AMINO TRANSFERASE 11 Units/L (15-37); BLOOD UREA NITROGEN 8 mg/dL (7-18); CALCIUM 8.5 mg/dL (8.5-10.1); CARBON DIOXIDE 26.7 mmol/L (21-32); CHLORIDE 100 mmol/L (98-107); COR CA(FOR HYPOALB) 10.1 mg/dL (8.5-10.1); COR NA(FOR HYPERGLY) 138 mmol/L (136-145); CREATININE 1.08 mg/dL (0.70-1.30); SODIUM 134 mmol/L (136-145); TOTAL PROTEIN 7.7 g/dL (6.4-8.2); eGFR NON BLACK RACES > 60 (>60)
[2021-11-28] MEDS: CIPRO IV 400 MG PREMIX* 400 MG/200 ML IV.SOLN. IV SCH ×2 (09:11→21:26)
[2021-11-28] MEDS: RIFADIN PO SCH ×2 (09:11→21:18)
[2021-11-28] MEDS: LEVEMIR SC SCH ×2 (09:23→21:20)
[2021-11-28] MEDS: NovoLIN R (or HumuLIN R) SUBCUT PRN ×3 (12:13→21:23)
--- NOTE | 2021-11-28 12:20 | PCM.PROG ---
Progress Note Progress Note for Day of Date of Exam: 11/28/21 Subjective Subjective: Pt is a 56 year old male admitted for neutrophilic leukocytosis and acute cystitis. This morning patient is resting comfortably in bed. He reports some improvement in his symptoms. No acute events overnight. Labs/imaging: Wbc 17, Hgb 9.7, Plt 349, Na 138, K 3.7, Creatinine 1.08, Glucose 262. Blood cultures pending. Urine culture positive for staph. haem. He has been currently receiving antibiotics: Cipro and Rifampin. Based on culture and sensitivities will add Linezolid. Leukocytosis continues to trend down. He does report a history of peripheral neuropathy from his diabetes. He was started yesterday on gabapentin 300 mg every 8 hours for his peripheral neuropathy. Continue Levemir 10 units BID and SSI. Otherwise continue with current treatment plan. Monitor and follow up labs in the morning. Past Medical Family Social History Allergies: Allergies No Known Drug Allergies Allergy (Verified 11/25/21 16:58) Review of Systems ROS: Changes notes (describe) (Patient reports increased burning and stinging in his feet and lower legs.) Vital Signs and I&O's Vital Signs: Temperature 100.1 F Pulse Rate [Brachial] 91 Pulse Rate 97 Respiratory Rate 20 Blood Pressure [Left Arm] 106/58 Blood Pressure 107/58 O2 Sat by Pulse Oximetry 97 Intake and Output: Intake & Output 11/25/21 11/26/21 11/27/21 11/28/21 23:59 23:59 23:59 23:59 Intake Total 168 / 168 2911 / 2911 2466 / 2466 1072 / 1072 Output Total 800 / 800 1600 / 1600 700 / 700 Balance 168 / 168 2111 / 2111 866 / 866 372 / 372 Physical Exam Oriented: Normal, Time, Person and Place Eyes: Normal Ear: Normal Nose: Normal Throat: Normal Respiratory: Normal Cardiovascular: Normal : Other (Deferred) Tenderness: Normal Skin: Decreased Turgur Musculoskeletal: Normal Psychiatric: Normal Mood Description: Calm Affect: Normal Speech Pattern: Clear and Appropriate Laboratory and Diagnostics Result Diagrams: 11/28/21 06:04 11/28/21 06:04 Labs: 11/25/21 11:04 Urine,Clean Catch Urine Culture - Final Staphylococcus Haemolyticus 11/25/21 17:15 Blood Blood Culture - Preliminary 11/25/21 17:05 Blood Blood Culture - Preliminary Laboratory WBC 17.0 X10^3/uL (3.6-10.0) H 11/28/21 06:04 RBC 3.50 X10^6/uL (4.7-6.0) L 11/28/21 06:04 Hgb 9.7 g/dL (13.5-18.0) L 11/28/21 06:04 Hct 29.2 % (42.0-54.0) L 11/28/21 06:04 MCV 83.6 fL (80.0-100.0) 11/28/21 06:04 MCH 27.8 pg (27.0-34.0) 11/28/21 06:04 MCHC 33.3 g/dL (33.0-35.0) 11/28/21 06:04 RDW 14.0 % (11.6-16.5) 11/28/21 06:04 Plt Count 349 X10^3/uL (150.0-450.0) 11/28/21 06:04 Plt Count Comment Adequate (ADEQUATE) 11/26/21 05:30 MPV 8.8 fL (7.4-11.0) 11/28/21 06:04 Neut % (Auto) 79.1 % (42.0-75.0) H 11/28/21 06:04 Lymph % (Auto) 10.3 % (21.0-51.0) L 11/28/21 06:04 [place] % (Auto) 8.5 % (0.0-13.0) 11/28/21 06:04 Eos % (Auto) 1.6 % (0.9-2.9) 11/28/21 06:04 Baso % (Auto) 0.5 % (0.2-1.0) 11/28/21 06:04 Neut # (Auto) 13.4 x10^3/uL (2.2-4.8) H 11/28/21 06:04 Lymph # (Auto) 1.8 X10^3/uL (1.3-2.9) 11/28/21 06:04 [place] # (Auto) 1.4 x10^3/uL (0.3-0.8) H 11/28/21 06:04 Eos # (Auto) 0.3 x10^3/uL (0.0-0.2) H 11/28/21 06:04 Baso # (Auto) 0.1 X10^3/uL (0.0-0.1) 11/28/21 06:04 Absolute Nucleated RBC 0.0 /100WBC 11/28/21 06:04 Total Counted 100 11/26/21 05:30 Neutrophils % (Manual) 83 % (39-76) H 11/26/21 05:30 Band Neutrophils % 5 % (0-10) 11/26/21 05:30 Lymphocytes % (Manual) 8 % (13-43) L 11/26/21 05:30 Monocytes % (Manual) 4 % (4-9) 11/26/21 05:30 Plt Morphology Comment Normal (NORMAL) 11/26/21 05:30 RBC Morphology Normal (NORMAL) 11/26/21 05:30 Sodium 134 mmol/L (136-145) L 11/28/21 06:04 Corrected Sodium 138 mmol/L (136-145) 11/28/21 06:04 Potassium 3.7 mmol/L (3.5-5.1) 11/28/21 06:04 Chloride 100 mmol/L (98-107) 11/28/21 06:04 Carbon Dioxide 26.7 mmol/L (21-32) 11/28/21 06:04 BUN 8 mg/dL (7-18) 11/28/21 06:04 Creatinine 1.08 mg/dL (0.70-1.30) 11/28/21 06:04 Est GFR (MDRD) Af Amer > 60 (>60) 11/28/21 06:04 Est GFR (MDRD) Non-Af > 60 (>60) 11/28/21 06:04 Glucose 262 mg/dL (65-99) H 11/28/21 06:04 POC Glucose (mg/dL) 224 mg/dL (65-99) H 11/28/21 11:58 Lactic Acid 2.4 mmol/L (0.4-2.0) H 11/25/21 17:05 Calcium 8.5 mg/dL (8.5-10.1) 11/28/21 06:04 Corrected Calcium 10.1 mg/dL (8.5-10.1) 11/28/21 06:04 Total Bilirubin 0.20 mg/dL (0.2-1.0) 11/28/21 06:04 AST 11 Units/L (15-37) L 11/28/21 06:04 ALT 8 Units/L (12-78) L 11/28/21 06:04 Alkaline Phosphatase 112 Units/L (46-116) 11/28/21 06:04 Total Protein 7.7 g/dL (6.4-8.2) 11/28/21 06:04 Albumin 2.0 g/dL (3.4-5.0) L 11/28/21 06:04 Globulin 5.7 g/dL (2.5-4.5) H 11/28/21 06:04 Albumin/Globulin Ratio 0.4 Ratio (1.1-2.1) L 11/28/21 06:04 Specimen Type Clean catch urine 11/25/21 18:11 Urine Color Pale yellow (YELLOW) 11/25/21 18:11 Urine Appearance Clear (CLEAR) 11/25/21 18:11 Urine pH 6.0 (5.0 - 8.0) 11/25/21 18:11 Ur Specific [place] 1.020 (1.000-1.030) 11/25/21 18:11 Urine Protein 3+ (NEGATIVE) 11/25/21 18:11 Urine Glucose (UA) 4+ (NEGATIVE) 11/25/21 18:11 Urine Ketones 1+ (NEGATIVE) 11/25/21 18:11 Urine Blood 4+ (NEGATIVE) 11/25/21 18:11 Urine Nitrite Negative (NEGATIVE) 11/25/21 18:11 Urine Bilirubin Negative (NEGATIVE) 11/25/21 18:11 Urine Urobilinogen Normal (NORMAL) 11/25/21 18:11 Ur Leukocyte Esterase Negative (NEGATIVE) 11/25/21 18:11 Urine RBC 5-10 /HPF (0-3) A 11/25/21 18:11 Urine WBC None seen /HPF (0-5) 11/25/21 18:11 Ur Squamous Epith Cells Rare /HPF (NEGATIVE) 11/25/21 18:11 Urine Bacteria Trace /HPF (NEGATIVE) 11/25/21 18:11 Urine Yeast Few /HPF (NEGATIVE) 11/25/21 18:11 Ur Culture Indicated? No/not indicated 11/25/21 18:11 SARS-CoV-2 (PCR) Negative (NEGATIVE) 11/25/21 17:11 Influenza Type A (PCR) Negative (NEGATIVE) 11/25/21 17:11 Influenza Type B (PCR) Negative (NEGATIVE) 11/25/21 17:11 RSV (PCR) Negative (NEGATIVE) 11/25/21 17:11 Plan (1) Neutrophilic leukocytosis: Status: Acute Plan: Continue IV abx (2) Acute hyponatremia: Status: Resolved Plan: Change normal saline IV fluid to KVO today. (3) Dehydration: Status: Acute Plan: I will decrease patient's IV fluids to KVO today. (4) Diabetes mellitus type 2, insulin dependent: Status: Acute Plan: I will add Levemir 10 units subcutaneous every 12 hours for better blood sugar control this morning. (5) Diabetic peripheral neuropathy: Status: Acute Plan: I am starting the patient on gabapentin 300 mg every 8 hours for his peripheral neuropathy. (6) Acute cystitis: Status: Acute
[2021-11-28] MEDS: NS 1,000 ML IV 1,000 ML IV SCH (14:13)
[2021-11-28] MEDS: SNACK - Diabetic Appropriate PO SCH (23:09)
[2021-11-29] MEDS: NEURONTIN CAP 300 MG PO SCH ×3 (05:33→21:01)
[2021-11-29] MEDS: NovoLIN R (or HumuLIN R) SUBCUT PRN ×4 (05:46→20:56)
[2021-11-29 06:13] LABS: BASOPHILS # (AUTO) 0.1 X10^3/uL (0.0-0.1); BASOPHILS % (AUTO) 0.7 % (0.2-1.0); EOSINOPHILS # (AUTO) 0.2 x10^3/uL (0.0-0.2); EOSINOPHILS % (AUTO) 1.3 % (0.9-2.9); HEMATOCRIT 28.6 % (42.0-54.0); HEMOGLOBIN 9.6 g/dL (13.5-18.0); LYMPHOCYTES # (AUTO) 2.4 X10^3/uL (1.3-2.9); LYMPHOCYTES % (AUTO) 12.6 % (21.0-51.0); MEAN CORPUSCULAR HEMOGLOBIN 27.7 pg (27.0-34.0); MEAN CORPUSCULAR HGB CONC 33.5 g/dL (33.0-35.0); MEAN CORPUSCULAR VOLUME 82.6 fL (80.0-100.0); MEAN PLATELET VOLUME 8.4 fL (7.4-11.0); MONOCYTES # (AUTO) 1.5 x10^3/uL (0.3-0.8); MONOCYTES % (AUTO) 7.6 % (0.0-13.0); NEUTROPHILS # (AUTO) 14.8 x10^3/uL (2.2-4.8); NEUTROPHILS % (AUTO) 77.8 % (42.0-75.0); RED BLOOD COUNT 3.46 X10^6/uL (4.7-6.0); RED CELL DISTRIBUTION WIDTH 13.9 % (11.6-16.5)
[2021-11-29 06:25] LABS: ALANINE AMINOTRANSFERASE 8 Units/L (12-78); ALKALINE PHOSPHATASE 113 Units/L (46-116); ASPARTATE AMINO TRANSFERASE 12 Units/L (15-37); BLOOD UREA NITROGEN 14 mg/dL (7-18); CALCIUM 8.6 mg/dL (8.5-10.1); CARBON DIOXIDE 27.4 mmol/L (21-32); CHLORIDE 99 mmol/L (98-107); COR CA(FOR HYPOALB) 10.2 mg/dL (8.5-10.1); COR NA(FOR HYPERGLY) 138 mmol/L (136-145); CREATININE 1.53 mg/dL (0.70-1.30); SODIUM 134 mmol/L (136-145); eGFR NON BLACK RACES 50 (>60)
[2021-11-29] MEDS: CIPRO IV 400 MG PREMIX* 400 MG/200 ML IV.SOLN. IV SCH ×2 (08:22→20:50)
[2021-11-29] MEDS: LEVEMIR SC SCH ×2 (08:22→20:55)
[2021-11-29] MEDS: RIFADIN PO SCH ×2 (08:22→20:51)
[2021-11-29] MEDS: ZYVOX 600MG IV 600 MG/300 ML BAG IV SCH ×2 (08:25→20:54)
--- NOTE | 2021-11-29 09:17 | DR.PROGNOT ---
Hospital Progress Notes - Progress Note for Day of: Progress Note Date: 11/29/21 - Chief Complaint Chief Complaint: c/p pain LT foot with mild drainage . recent great toe infection and swelling . ( known diabetic neuropathy .) - Past Medical Family Social History Past Med/Fam/Surg Hx: No changes since H&P Allergies: Allergies No Known Drug Allergies Allergy (Verified 11/25/21 16:58) - Review Of Systems ROS: No change since H&P, Changes notes (describe) (Patient reports increased burning and stinging in his feet and lower legs.) - Vital Signs Vital Signs: Temperature 98.5 F Pulse Rate [Brachial] 87 Pulse Rate 97 Respiratory Rate 18 Blood Pressure [Left Arm] 130/69 Blood Pressure 107/58 O2 Sat by Pulse Oximetry 99 - Physical Exam Oriented: Normal, Time, Person, Place Eyes: Normal Ear: Normal Nose: Normal Throat: Normal Respiratory: Normal Cardiovascular: Normal : Other (Deferred) GI:Auscultation: Normal GI:Palpation: Normal GI: Tenderness: Normal Skin: Decreased Turgur, Other (Lt great toe with edema , erythema and open wound ..Pulses + ) Musculoskeletal: Normal Psychiatric: Normal Mood Description: Calm Affect: Normal Speech Pattern: Clear, Appropriate - Laboratory and Diagnostics Result Diagrams: 11/29/21 05:50 11/29/21 05:50 Labs: 11/25/21 11:04 Urine,Clean Catch Urine Culture - Final Staphylococcus Haemolyticus 11/25/21 17:15 Blood Blood Culture - Preliminary 11/25/21 17:05 Blood Blood Culture - Preliminary Laboratory WBC 19.0 X10^3/uL (3.6-10.0) H 11/29/21 05:50 RBC 3.46 X10^6/uL (4.7-6.0) L 11/29/21 05:50 Hgb 9.6 g/dL (13.5-18.0) L 11/29/21 05:50 Hct 28.6 % (42.0-54.0) L 11/29/21 05:50 MCV 82.6 fL (80.0-100.0) 11/29/21 05:50 MCH 27.7 pg (27.0-34.0) 11/29/21 05:50 MCHC 33.5 g/dL (33.0-35.0) 11/29/21 05:50 RDW 13.9 % (11.6-16.5) 11/29/21 05:50 Plt Count 393 X10^3/uL (150.0-450.0) 11/29/21 05:50 Plt Count Comment Adequate (ADEQUATE) 11/26/21 05:30 MPV 8.4 fL (7.4-11.0) 11/29/21 05:50 Neut % (Auto) 77.8 % (42.0-75.0) H 11/29/21 05:50 Lymph % (Auto) 12.6 % (21.0-51.0) L 11/29/21 05:50 [place] % (Auto) 7.6 % (0.0-13.0) 11/29/21 05:50 Eos % (Auto) 1.3 % (0.9-2.9) 11/29/21 05:50 Baso % (Auto) 0.7 % (0.2-1.0) 11/29/21 05:50 Neut # (Auto) 14.8 x10^3/uL (2.2-4.8) H 11/29/21 05:50 Lymph # (Auto) 2.4 X10^3/uL (1.3-2.9) 11/29/21 05:50 [place] # (Auto) 1.5 x10^3/uL (0.3-0.8) H 11/29/21 05:50 Eos # (Auto) 0.2 x10^3/uL (0.0-0.2) 11/29/21 05:50 Baso # (Auto) 0.1 X10^3/uL (0.0-0.1) 11/29/21 05:50 Absolute Nucleated RBC 0.0 /100WBC 11/29/21 05:50 Total Counted 100 11/26/21 05:30 Neutrophils % (Manual) 83 % (39-76) H 11/26/21 05:30 Band Neutrophils % 5 % (0-10) 11/26/21 05:30 Lymphocytes % (Manual) 8 % (13-43) L 11/26/21 05:30 Monocytes % (Manual) 4 % (4-9) 11/26/21 05:30 Plt Morphology Comment Normal (NORMAL) 11/26/21 05:30 RBC Morphology Normal (NORMAL) 11/26/21 05:30 Sodium 134 mmol/L (136-145) L 11/29/21 05:50 Corrected Sodium 138 mmol/L (136-145) 11/29/21 05:50 Potassium 3.8 mmol/L (3.5-5.1) 11/29/21 05:50 Chloride 99 mmol/L (98-107) 11/29/21 05:50 Carbon Dioxide 27.4 mmol/L (21-32) 11/29/21 05:50 BUN 14 mg/dL (7-18) 11/29/21 05:50 Creatinine 1.53 mg/dL (0.70-1.30) H 11/29/21 05:50 Est GFR (MDRD) Af Amer > 60 (>60) 11/29/21 05:50 Est GFR (MDRD) Non-Af 50 (>60) L 11/29/21 05:50 Glucose 258 mg/dL (65-99) H 11/29/21 05:50 POC Glucose (mg/dL) 245 mg/dL (65-99) H 11/29/21 05:37 Lactic Acid 2.4 mmol/L (0.4-2.0) H 11/25/21 17:05 Calcium 8.6 mg/dL (8.5-10.1) 11/29/21 05:50 Corrected Calcium 10.2 mg/dL (8.5-10.1) H 11/29/21 05:50 Total Bilirubin 0.20 mg/dL (0.2-1.0) 11/29/21 05:50 AST 12 Units/L (15-37) L 11/29/21 05:50 ALT 8 Units/L (12-78) L 11/29/21 05:50 Alkaline Phosphatase 113 Units/L (46-116) 11/29/21 05:50 Total Protein 8.0 g/dL (6.4-8.2) 11/29/21 05:50 Albumin 2.0 g/dL (3.4-5.0) L 11/29/21 05:50 Globulin 6.0 g/dL (2.5-4.5) H 11/29/21 05:50 Albumin/Globulin Ratio 0.3 Ratio (1.1-2.1) L 11/29/21 05:50 Specimen Type Clean catch urine 11/25/21 18:11 Urine Color Pale yellow (YELLOW) 11/25/21 18:11 Urine Appearance Clear (CLEAR) 11/25/21 18:11 Urine pH 6.0 (5.0 - 8.0) 11/25/21 18:11 Ur Specific [place] 1.020 (1.000-1.030) 11/25/21 18:11 Urine Protein 3+ (NEGATIVE) 11/25/21 18:11 Urine Glucose (UA) 4+ (NEGATIVE) 11/25/21 18:11 Urine Ketones 1+ (NEGATIVE) 11/25/21 18:11 Urine Blood 4+ (NEGATIVE) 11/25/21 18:11 Urine Nitrite Negative (NEGATIVE) 11/25/21 18:11 Urine Bilirubin Negative (NEGATIVE) 11/25/21 18:11 Urine Urobilinogen Normal (NORMAL) 11/25/21 18:11 Ur Leukocyte Esterase Negative (NEGATIVE) 11/25/21 18:11 Urine RBC 5-10 /HPF (0-3) A 11/25/21 18:11 Urine WBC None seen /HPF (0-5) 11/25/21 18:11 Ur Squamous Epith Cells Rare /HPF (NEGATIVE) 11/25/21 18:11 Urine Bacteria Trace /HPF (NEGATIVE) 11/25/21 18:11 Urine Yeast Few /HPF (NEGATIVE) 11/25/21 18:11 Ur Culture Indicated? No/not indicated 11/25/21 18:11 SARS-CoV-2 (PCR) Negative (NEGATIVE) 11/25/21 17:11 Influenza Type A (PCR) Negative (NEGATIVE) 11/25/21 17:11 Influenza Type B (PCR) Negative (NEGATIVE) 11/25/21 17:11 RSV (PCR) Negative (NEGATIVE) 11/25/21 17:11 - Assessment and Plan 1: diabetic ulcer Lt great toe . r.o osteomyelitis . diabetic neuropathy . DM with complications . to obtain C&S from the ulcer . CT of LT foot looking for abscess or osteomyelitis . - Problem Patient Problems: Patient Problems Neutrophilic leukocytosis (Acute) D72.9 Acute hyponatremia (Resolved) E87.1 Dehydration (Acute) E86.0
--- NOTE | 2021-11-29 11:37 | PCM.PROG ---
Progress Note Progress Note for Day of Date of Exam: 11/29/21 Subjective Subjective: Pt is a 56 year old male admitted for neutrophilic leukocytosis and acute cystitis. This morning patient is resting comfortably in bed. He continues to improve in his symptoms. No acute events overnight. Yesterday left great toe wound noted that appears to be diabetic ulcer. Surgery consulted, Dr Carmona for further evaluation, CT lower extremity ordered to rule out abscess or osteomyelitis. Labs/imaging: Wbc 19, Hgb 9.6, Plt 393, Na 134, K 3.8, Creatinine 1.53, Glucose 258. Blood cultures pending. Urine culture positive for staph. haem. Wound culture pending. He has been currently receiving antibiotics: IV Cipro, IV linezolid, and Rifampin. He does report a history of peripheral gary ropathy from his diabetes. FSBG have been elevated, will increase Levemir to 15 units BID and SSI. Otherwise continue with current treatment plan. Monitor and follow up labs in the morning. Past Medical Family Social History Past Med/Fam/Surg Hx: No changes since H&P Allergies: Allergies No Known Drug Allergies Allergy (Verified 11/25/21 16:58) Review of Systems ROS: No change since H&P and Changes notes (describe) (Patient reports increased burning and stinging in his feet and lower legs.) Vital Signs and I&O's Vital Signs: Temperature 100.2 F Pulse Rate [Brachial] 90 Pulse Rate 97 Respiratory Rate 18 Blood Pressure [Left Arm] 114/70 Blood Pressure 107/58 O2 Sat by Pulse Oximetry 98 Intake and Output: Intake & Output 11/26/21 11/27/21 11/28/21 11/29/21 23:59 23:59 23:59 23:59 Intake Total 2911 / 2911 2466 / 2466 2164 / 2164 1552 / 1552 Output Total 800 / 800 1600 / 1600 2049 / 2049 1150 / 1150 Balance 211 / 2111 866 / 866 114 / 114 402 / 402 Physical Exam Oriented: Normal, Time, Person and Place Eyes: Normal Ear: Normal Nose: Normal Throat: Normal Respiratory: Normal Cardiovascular: Normal : Other (Deferred) Auscultation: Bowel Sounds: Normal Tenderness: Normal Skin: Decreased Turgur and Other (Lt great toe with edema , erythema and open wound ..Pulses + ) Musculoskeletal: Normal Psychiatric: Normal Mood Description: Calm Affect: Normal Speech Pattern: Clear and Appropriate Laboratory and Diagnostics Result Diagrams: 11/29/21 05:50 11/29/21 05:50 Labs: 11/29/21 09:25 Toe - Left Big Wound Gram Stain - Final 11/25/21 11:04 Urine,Clean Catch Urine Culture - Final Staphylococcus Haemolyticus 11/25/21 17:15 Blood Blood Culture - Preliminary 11/25/21 17:05 Blood Blood Culture - Preliminary Laboratory WBC 19.0 X10^3/uL (3.6-10.0) H 11/29/21 05:50 RBC 3.46 X10^6/uL (4.7-6.0) L 11/29/21 05:50 Hgb 9.6 g/dL (13.5-18.0) L 11/29/21 05:50 Hct 28.6 % (42.0-54.0) L 11/29/21 05:50 MCV 82.6 fL (80.0-100.0) 11/29/21 05:50 MCH 27.7 pg (27.0-34.0) 11/29/21 05:50 MCHC 33.5 g/dL (33.0-35.0) 11/29/21 05:50 RDW 13.9 % (11.6-16.5) 11/29/21 05:50 Plt Count 393 X10^3/uL (150.0-450.0) 11/29/21 05:50 Plt Count Comment Adequate (ADEQUATE) 11/26/21 05:30 MPV 8.4 fL (7.4-11.0) 11/29/21 05:50 Neut % (Auto) 77.8 % (42.0-75.0) H 11/29/21 05:50 Lymph % (Auto) 12.6 % (21.0-51.0) L 11/29/21 05:50 [place] % (Auto) 7.6 % (0.0-13.0) 11/29/21 05:50 Eos % (Auto) 1.3 % (0.9-2.9) 11/29/21 05:50 Baso % (Auto) 0.7 % (0.2-1.0) 11/29/21 05:50 Neut # (Auto) 14.8 x10^3/uL (2.2-4.8) H 11/29/21 05:50 Lymph # (Auto) 2.4 X10^3/uL (1.3-2.9) 11/29/21 05:50 [place]kinson # (Auto) 1.5 x10^3/uL (0.3-0.8) H 11/29/21 05:50 Eos # (Auto) 0.2 x10^3/uL (0.0-0.2) 11/29/21 05:50 Baso # (Auto) 0.1 X10^3/uL (0.0-0.1) 11/29/21 05:50 Absolute Nucleated RBC 0.0 /100WBC 11/29/21 05:50 Total Counted 100 11/26/21 05:30 Neutrophils % (Manual) 83 % (39-76) H 11/26/21 05:30 Band Neutrophils % 5 % (0-10) 11/26/21 05:30 Lymphocytes % (Manual) 8 % (13-43) L 11/26/21 05:30 Monocytes % (Manual) 4 % (4-9) 11/26/21 05:30 Plt Morphology Comment Normal (NORMAL) 11/26/21 05:30 RBC Morphology Normal (NORMAL) 11/26/21 05:30 Sodium 134 mmol/L (136-145) L 11/29/21 05:50 Corrected Sodium 138 mmol/L (136-145) 11/29/21 05:50 Potassium 3.8 mmol/L (3.5-5.1) 11/29/21 05:50 Chloride 99 mmol/L (98-107) 11/29/21 05:50 Carbon Dioxide 27.4 mmol/L (21-32) 11/29/21 05:50 BUN 14 mg/dL (7-18) 11/29/21 05:50 Creatinine 1.53 mg/dL (0.70-1.30) H 11/29/21 05:50 Est GFR (MDRD) Af Amer > 60 (>60) 11/29/21 05:50 Est GFR (MDRD) Non-Af 50 (>60) L 11/29/21 05:50 Glucose 258 mg/dL (65-99) H 11/29/21 05:50 POC Glucose (mg/dL) 313 mg/dL (65-99) H 11/29/21 10:22 Lactic Acid 2.4 mmol/L (0.4-2.0) H 11/25/21 17:05 Calcium 8.6 mg/dL (8.5-10.1) 11/29/21 05:50 Corrected Calcium 10.2 mg/dL (8.5-10.1) H 11/29/21 05:50 Total Bilirubin 0.20 mg/dL (0.2-1.0) 11/29/21 05:50 AST 12 Units/L (15-37) L 11/29/21 05:50 ALT 8 Units/L (12-78) L 11/29/21 05:50 Alkaline Phosphatase 113 Units/L (46-116) 11/29/21 05:50 Total Protein 8.0 g/dL (6.4-8.2) 11/29/21 05:50 Albumin 2.0 g/dL (3.4-5.0) L 11/29/21 05:50 Globulin 6.0 g/dL (2.5-4.5) H 11/29/21 05:50 Albumin/Globulin Ratio 0.3 Ratio (1.1-2.1) L 11/29/21 05:50 Specimen Type Clean catch urine 11/25/21 18:11 Urine Color Pale yellow (YELLOW) 11/25/21 18:11 Urine Appearance Clear (CLEAR) 11/25/21 18:11 Urine pH 6.0 (5.0 - 8.0) 11/25/21 18:11 Ur Specific [place] 1.020 (1.000-1.030) 11/25/21 18:11 Urine Protein 3+ (NEGATIVE) 11/25/21 18:11 Urine Glucose (UA) 4+ (NEGATIVE) 11/25/21 18:11 Urine Ketones 1+ (NEGATIVE) 11/25/21 18:11 Urine Blood 4+ (NEGATIVE) 11/25/21 18:11 Urine Nitrite Negative (NEGATIVE) 11/25/21 18:11 Urine Bilirubin Negative (NEGATIVE) 11/25/21 18:11 Urine Urobilinogen Normal (NORMAL) 11/25/21 18:11 Ur Leukocyte Esterase Negative (NEGATIVE) 11/25/21 18:11 Urine RBC 5-10 /HPF (0-3) A 11/25/21 18:11 Urine WBC None seen /HPF (0-5) 11/25/21 18:11 Ur Squamous Epith Cells Rare /HPF (NEGATIVE) 11/25/21 18:11 Urine Bacteria Trace /HPF (NEGATIVE) 11/25/21 18:11 Urine Yeast Few /HPF (NEGATIVE) 11/25/21 18:11 Ur Culture Indicated? No/not indicated 11/25/21 18:11 SARS-CoV-2 (PCR) Negative (NEGATIVE) 11/25/21 17:11 Influenza Type A (PCR) Negative (NEGATIVE) 11/25/21 17:11 Influenza Type B (PCR) Negative (NEGATIVE) 11/25/21 17:11 RSV (PCR) Negative (NEGATIVE) 11/25/21 17:11 Plan (1) Neutrophilic leukocytosis: Status: Acute Plan: Continue IV abx (2) Acute hyponatremia: Status: Resolved Plan: Change normal saline IV fluid to KVO today. (3) Dehydration: Status: Acute Plan: I will decrease patient's IV fluids to KVO today. (4) Diabetes mellitus type 2, insulin dependent: Status: Acute Plan: I will add Levemir 10 units subcutaneous every 12 hours for better blood sugar control this morning. (5) Diabetic peripheral neuropathy: Status: Acute Plan: I am starting the patient on gabapentin 300 mg every 8 hours for his peripheral neuropathy. (6) Acute cystitis: Status: Acute
[2021-11-29] MEDS: NS 1,000 ML IV 1,000 ML IV SCH (13:26)
--- NOTE | 2021-11-29 16:01 | CT ---
HISTORYR/O OSTEO OR ABCESSSTUDYLOWER EXT WITH CONCOMPARISONTECHNIQUEThe intravenous administration of iodinated contrast, spiral CT imaging was performed through the left foot and ankle and axial, coronal, and sagittal CT images were generated. Dose reduction techniques including Automated Exposure Control (AEC) and adjustment of mA and kV were utilized.FINDINGSThere is degenerative change in the ankle joint, subtalar joint, midfoot, and forefoot. There is no erosive change osteomyelitis. There is nonspecific induration in the soft tissues. No abscess is identified..IMPRESSION1. No convincing evidence for abscess or osteomyelitis.Electronically signed by: Arley Bird (Nov 29, 2021 15:59:17)
[2021-11-29] MEDS: SNACK - Diabetic Appropriate PO SCH (20:58)
[2021-11-30 05:23] LABS: BASOPHILS # (AUTO) 0.1 X10^3/uL (0.0-0.1); BASOPHILS % (AUTO) 0.9 % (0.2-1.0); EOSINOPHILS # (AUTO) 0.3 x10^3/uL (0.0-0.2); HEMATOCRIT 26.6 % (42.0-54.0); HEMOGLOBIN 9.1 g/dL (13.5-18.0); LYMPHOCYTES # (AUTO) 2.5 X10^3/uL (1.3-2.9); LYMPHOCYTES % (AUTO) 17.1 % (21.0-51.0); MEAN CORPUSCULAR HEMOGLOBIN 27.7 pg (27.0-34.0); MEAN CORPUSCULAR HGB CONC 34.3 g/dL (33.0-35.0); MEAN CORPUSCULAR VOLUME 80.9 fL (80.0-100.0); MEAN PLATELET VOLUME 8.7 fL (7.4-11.0); MONOCYTES # (AUTO) 1.3 x10^3/uL (0.3-0.8); MONOCYTES % (AUTO) 8.6 % (0.0-13.0); NEUTROPHILS # (AUTO) 10.6 x10^3/uL (2.2-4.8); NEUTROPHILS % (AUTO) 71.4 % (42.0-75.0); RED BLOOD COUNT 3.29 X10^6/uL (4.7-6.0); RED CELL DISTRIBUTION WIDTH 13.7 % (11.6-16.5); WHITE BLOOD COUNT 14.8 X10^3/uL (3.6-10.0)
[2021-11-30 05:49] LABS: ALANINE AMINOTRANSFERASE 8 Units/L (12-78); ALBUMIN 1.7 g/dL (3.4-5.0); ALKALINE PHOSPHATASE 91 Units/L (46-116); ASPARTATE AMINO TRANSFERASE 8 Units/L (15-37); BLOOD UREA NITROGEN 13 mg/dL (7-18); CALCIUM 8.7 mg/dL (8.5-10.1); CARBON DIOXIDE 28.8 mmol/L (21-32); CHLORIDE 101 mmol/L (98-107); COR CA(FOR HYPOALB) 10.5 mg/dL (8.5-10.1); COR NA(FOR HYPERGLY) 136 mmol/L (136-145); CREATININE 1.08 mg/dL (0.70-1.30); SODIUM 135 mmol/L (136-145); TOTAL PROTEIN 7.6 g/dL (6.4-8.2); eGFR NON BLACK RACES > 60 (>60)
[2021-11-30] MEDS: NEURONTIN CAP 300 MG PO SCH ×3 (07:49→21:18)
[2021-11-30] MEDS: LEVEMIR SC SCH ×2 (09:06→20:40)
[2021-11-30] MEDS: CIPRO IV 400 MG PREMIX* 400 MG/200 ML IV.SOLN. IV SCH ×2 (09:06→20:38)
[2021-11-30] MEDS: RIFADIN PO SCH ×2 (09:07→20:38)
[2021-11-30] MEDS: ZYVOX 600MG IV 600 MG/300 ML BAG IV SCH ×2 (09:08→20:37)
--- NOTE | 2021-11-30 10:04 | DR.PROGNOT ---
Hospital Progress Notes - Progress Note for Day of: Progress Note Date: 11/30/21 - Chief Complaint Chief Complaint: less pain LT foot .. still having mild drainage . NS is less than [address] Lt foot showed no abscess or osteomyelitis .. - Past Medical Family Social History Past Med/Fam/Surg Hx: No changes since H&P Allergies: Allergies No Known Drug Allergies Allergy (Verified 11/25/21 16:58) - Review Of Systems ROS: No change since H&P, Changes notes (describe) (Patient reports increased burning and stinging in his feet and lower legs.) - Vital Signs Vital Signs: Temperature 98.9 F Pulse Rate [Brachial] 79 Pulse Rate 97 Respiratory Rate 18 Blood Pressure [Left Arm] 101/58 Blood Pressure 107/58 O2 Sat by Pulse Oximetry 100 - Physical Exam Oriented: Normal, Time, Person, Place Eyes: Normal Ear: Normal Nose: Normal Throat: Normal Respiratory: Normal Cardiovascular: Normal : Other (Deferred) GI:Auscultation: Normal GI:Palpation: Normal GI: Tenderness: Normal Skin: Decreased Turgur, Other (open ulcer at the base of LT great toe with moderate edema and erythema .. no necrosis ) Musculoskeletal: Normal Psychiatric: Normal Mood Description: Calm Affect: Normal Speech Pattern: Clear, Appropriate - Laboratory and Diagnostics Result Diagrams: 11/30/21 04:12 11/30/21 04:12 Labs: 11/29/21 09:25 Toe - Left Big Wound Gram Stain - Final 11/25/21 11:04 Urine,Clean Catch Urine Culture - Final Staphylococcus Haemolyticus 11/25/21 17:15 Blood Blood Culture - Preliminary 11/25/21 17:05 Blood Blood Culture - Preliminary Laboratory WBC 14.8 X10^3/uL (3.6-10.0) H 11/30/21 04:12 RBC 3.29 X10^6/uL (4.7-6.0) L 11/30/21 04:12 Hgb 9.1 g/dL (13.5-18.0) L 11/30/21 04:12 Hct 26.6 % (42.0-54.0) L 11/30/21 04:12 MCV 80.9 fL (80.0-100.0) 11/30/21 04:12 MCH 27.7 pg (27.0-34.0) 11/30/21 04:12 MCHC 34.3 g/dL (33.0-35.0) 11/30/21 04:12 RDW 13.7 % (11.6-16.5) 11/30/21 04:12 Plt Count 373 X10^3/uL (150.0-450.0) 11/30/21 04:12 Plt Count Comment Adequate (ADEQUATE) 11/26/21 05:30 MPV 8.7 fL (7.4-11.0) 11/30/21 04:12 Neut % (Auto) 71.4 % (42.0-75.0) 11/30/21 04:12 Lymph % (Auto) 17.1 % (21.0-51.0) L 11/30/21 04:12 [place] % (Auto) 8.6 % (0.0-13.0) 11/30/21 04:12 Eos % (Auto) 2.0 % (0.9-2.9) 11/30/21 04:12 Baso % (Auto) 0.9 % (0.2-1.0) 11/30/21 04:12 Neut # (Auto) 10.6 x10^3/uL (2.2-4.8) H 11/30/21 04:12 Lymph # (Auto) 2.5 X10^3/uL (1.3-2.9) 11/30/21 04:12 [place] # (Auto) 1.3 x10^3/uL (0.3-0.8) H 11/30/21 04:12 Eos # (Auto) 0.3 x10^3/uL (0.0-0.2) H 11/30/21 04:12 Baso # (Auto) 0.1 X10^3/uL (0.0-0.1) 11/30/21 04:12 Absolute Nucleated RBC 0.0 /100WBC 11/30/21 04:12 Total Counted 100 11/26/21 05:30 Neutrophils % (Manual) 83 % (39-76) H 11/26/21 05:30 Band Neutrophils % 5 % (0-10) 11/26/21 05:30 Lymphocytes % (Manual) 8 % (13-43) L 11/26/21 05:30 Monocytes % (Manual) 4 % (4-9) 11/26/21 05:30 Plt Morphology Comment Normal (NORMAL) 11/26/21 05:30 RBC Morphology Normal (NORMAL) 11/26/21 05:30 Sodium 135 mmol/L (136-145) L 11/30/21 04:12 Corrected Sodium 136 mmol/L (136-145) 11/30/21 04:12 Potassium 3.8 mmol/L (3.5-5.1) 11/30/21 04:12 Chloride 101 mmol/L (98-107) 11/30/21 04:12 Carbon Dioxide 28.8 mmol/L (21-32) 11/30/21 04:12 BUN 13 mg/dL (7-18) 11/30/21 04:12 Creatinine 1.08 mg/dL (0.70-1.30) 11/30/21 04:12 Est GFR (MDRD) Af Amer > 60 (>60) 11/30/21 04:12 Est GFR (MDRD) Non-Af > 60 (>60) 11/30/21 04:12 Glucose 134 mg/dL (65-99) H 11/30/21 04:12 POC Glucose (mg/dL) 184 mg/dL (65-99) H 11/30/21 08:19 Lactic Acid 2.4 mmol/L (0.4-2.0) H 11/25/21 17:05 Calcium 8.7 mg/dL (8.5-10.1) 11/30/21 04:12 Corrected Calcium 10.5 mg/dL (8.5-10.1) H 11/30/21 04:12 Total Bilirubin 0.20 mg/dL (0.2-1.0) 11/30/21 04:12 AST 8 Units/L (15-37) L 11/30/21 04:12 ALT 8 Units/L (12-78) L 11/30/21 04:12 Alkaline Phosphatase 91 Units/L (46-116) 11/30/21 04:12 Total Protein 7.6 g/dL (6.4-8.2) 11/30/21 04:12 Albumin 1.7 g/dL (3.4-5.0) L 11/30/21 04:12 Globulin 5.9 g/dL (2.5-4.5) H 11/30/21 04:12 Albumin/Globulin Ratio 0.3 Ratio (1.1-2.1) L 11/30/21 04:12 Specimen Type Clean catch urine 11/25/21 18:11 Urine Color Pale yellow (YELLOW) 11/25/21 18:11 Urine Appearance Clear (CLEAR) 11/25/21 18:11 Urine pH 6.0 (5.0 - 8.0) 11/25/21 18:11 Ur Specific [place] 1.020 (1.000-1.030) 11/25/21 18:11 Urine Protein 3+ (NEGATIVE) 11/25/21 18:11 Urine Glucose (UA) 4+ (NEGATIVE) 11/25/21 18:11 Urine Ketones 1+ (NEGATIVE) 11/25/21 18:11 Urine Blood 4+ (NEGATIVE) 11/25/21 18:11 Urine Nitrite Negative (NEGATIVE) 11/25/21 18:11 Urine Bilirubin Negative (NEGATIVE) 11/25/21 18:11 Urine Urobilinogen Normal (NORMAL) 11/25/21 18:11 Ur Leukocyte Esterase Negative (NEGATIVE) 11/25/21 18:11 Urine RBC 5-10 /HPF (0-3) A 11/25/21 18:11 Urine WBC None seen /HPF (0-5) 11/25/21 18:11 Ur Squamous Epith Cells Rare /HPF (NEGATIVE) 11/25/21 18:11 Urine Bacteria Trace /HPF (NEGATIVE) 11/25/21 18:11 Urine Yeast Few /HPF (NEGATIVE) 11/25/21 18:11 Ur Culture Indicated? No/not indicated 11/25/21 18:11 SARS-CoV-2 (PCR) Negative (NEGATIVE) 11/25/21 17:11 Influenza Type A (PCR) Negative (NEGATIVE) 11/25/21 17:11 Influenza Type B (PCR) Negative (NEGATIVE) 11/25/21 17:11 RSV (PCR) Negative (NEGATIVE) 11/25/21 17:11 - Assessment and Plan 1: diabetic ulcer Lt great toe . diabetic neuropathy . DM with complications . to soak with ( 1/2 H2O2 and 1/2 saline ) TWICE A DAY... IV ABT .. tO follow in the office in one week . - Problem Patient Problems: Patient Problems Neutrophilic leukocytosis (Acute) D72.9 Acute hyponatremia (Resolved) E87.1 Dehydration (Acute) E86.0
[2021-11-30] MEDS: NovoLIN R (or HumuLIN R) SUBCUT PRN ×3 (12:42→20:41)
[2021-11-30] MEDS: NS 1,000 ML IV 1,000 ML IV SCH (13:35)
--- NOTE | 2021-11-30 16:51 | PCM.PROG ---
Progress Note Progress Note for Day of Date of Exam: 11/30/21 Subjective Subjective: Jaxson is a 56 year old male admitted for neutrophilic leukocytosis and acute cystitis. This morning patient is resting comfortably in bed. He continues to improve in his symptoms. No acute events overnight. The patient does report that overall he is feeling better since he came in. Some moderate clear drainage of the left dorsal hallux gram stain showed gram-positive cocci but he has not been identified as of yet. His white blood cell count is improved tremendously since the start of linezolid yesterday. White count today is 14,800 which is down from 19,000 yesterday. Since the patient is responding well to treatment. I feels important that we obtain his cultures of his left dorsal hallux to make sure that at time of his discharge he will be on the appropriate antibiotics I will take care of the urine is Staph saprophyticus infection and what ever the wound culture grows out of his left toe. In the meantime we will continue him on IV linezolid IV Cipro and p.o. rifampin. I will plan on discharge most likely tomorrow morning after the patient receives his IV linezolid dose tomorrow. CT of the left lower extremity and foot did not show any abscess nor osteomyelitis. Past Medical Family Social History Past Med/Fam/Surg Hx: No changes since H&P Allergies: Allergies No Known Drug Allergies Allergy (Verified 11/25/21 16:58) Review of Systems ROS: No change since H&P and Changes notes (describe) (Patient reports increased burning and stinging in his feet and lower legs.) Vital Signs and I&O's Vital Signs: Temperature 98.2 F Pulse Rate [Brachial] 86 Pulse Rate 97 Respiratory Rate 18 Blood Pressure [Left Arm] 126/51 Blood Pressure 107/58 O2 Sat by Pulse Oximetry 96 Intake and Output: Intake & Output 11/28/21 11/29/21 11/30/21 12/01/21 11:59 11:59 11:59 11:59 Intake Total 2262 / 2262 2644 / 2644 1922 / 1922 720 / 720 Output Total 1999 / 1999 2500 / 2500 2450 / 2450 800 / 800 Balance 262 / 262 144 / 144 -528 / -528 -80 / -80 Physical Exam Oriented: Normal, Time, Person and Place Eyes: Normal Ear: Normal Nose: Normal Throat: Normal Respiratory: Normal Cardiovascular: Normal : Other (Deferred) Auscultation: Bowel Sounds: Normal Tenderness: Normal Skin: Decreased Turgur and Other (open ulcer at the base of LT great toe with moderate edema and erythema .. no necrosis ) Musculoskeletal: Normal Psychiatric: Normal Mood Description: Calm Affect: Normal Speech Pattern: Clear and Appropriate Laboratory and Diagnostics Result Diagrams: 11/30/21 04:12 11/30/21 04:12 Labs: 11/29/21 09:25 Toe - Left Big Wound Gram Stain - Final 11/29/21 09:25 Toe - Left Big Wound Culture - Preliminary 11/25/21 11:04 Urine,Clean Catch Urine Culture - Final Staphylococcus Haemolyticus 11/25/21 17:15 Blood Blood Culture - Preliminary 11/25/21 17:05 Blood Blood Culture - Preliminary Laboratory WBC 14.8 X10^3/uL (3.6-10.0) H 11/30/21 04:12 RBC 3.29 X10^6/uL (4.7-6.0) L 11/30/21 04:12 Hgb 9.1 g/dL (13.5-18.0) L 11/30/21 04:12 Hct 26.6 % (42.0-54.0) L 11/30/21 04:12 MCV 80.9 fL (80.0-100.0) 11/30/21 04:12 MCH 27.7 pg (27.0-34.0) 11/30/21 04:12 MCHC 34.3 g/dL (33.0-35.0) 11/30/21 04:12 RDW 13.7 % (11.6-16.5) 11/30/21 04:12 Plt Count 373 X10^3/uL (150.0-450.0) 11/30/21 04:12 Plt Count Comment Adequate (ADEQUATE) 11/26/21 05:30 MPV 8.7 fL (7.4-11.0) 11/30/21 04:12 Neut % (Auto) 71.4 % (42.0-75.0) 11/30/21 04:12 Lymph % (Auto) 17.1 % (21.0-51.0) L 11/30/21 04:12 [place] % (Auto) 8.6 % (0.0-13.0) 11/30/21 04:12 Eos % (Auto) 2.0 % (0.9-2.9) 11/30/21 04:12 Baso % (Auto) 0.9 % (0.2-1.0) 11/30/21 04:12 Neut # (Auto) 10.6 x10^3/uL (2.2-4.8) H 11/30/21 04:12 Lymph # (Auto) 2.5 X10^3/uL (1.3-2.9) 11/30/21 04:12 [place] # (Auto) 1.3 x10^3/uL (0.3-0.8) H 11/30/21 04:12 Eos # (Auto) 0.3 x10^3/uL (0.0-0.2) H 11/30/21 04:12 Baso # (Auto) 0.1 X10^3/uL (0.0-0.1) 11/30/21 04:12 Absolute Nucleated RBC 0.0 /100WBC 11/30/21 04:12 Total Counted 100 11/26/21 05:30 Neutrophils % (Manual) 83 % (39-76) H 11/26/21 05:30 Band Neutrophils % 5 % (0-10) 11/26/21 05:30 Lymphocytes % (Manual) 8 % (13-43) L 11/26/21 05:30 Monocytes % (Manual) 4 % (4-9) 11/26/21 05:30 Plt Morphology Comment Normal (NORMAL) 11/26/21 05:30 RBC Morphology Normal (NORMAL) 11/26/21 05:30 Sodium 135 mmol/L (136-145) L 11/30/21 04:12 Corrected Sodium 136 mmol/L (136-145) 11/30/21 04:12 Potassium 3.8 mmol/L (3.5-5.1) 11/30/21 04:12 Chloride 101 mmol/L (98-107) 11/30/21 04:12 Carbon Dioxide 28.8 mmol/L (21-32) 11/30/21 04:12 BUN 13 mg/dL (7-18) 11/30/21 04:12 Creatinine 1.08 mg/dL (0.70-1.30) 11/30/21 04:12 Est GFR (MDRD) Af Amer > 60 (>60) 11/30/21 04:12 Est GFR (MDRD) Non-Af > 60 (>60) 11/30/21 04:12 Glucose 134 mg/dL (65-99) H 11/30/21 04:12 POC Glucose (mg/dL) 333 mg/dL (65-99) H 11/30/21 16:16 Lactic Acid 2.4 mmol/L (0.4-2.0) H 11/25/21 17:05 Calcium 8.7 mg/dL (8.5-10.1) 11/30/21 04:12 Corrected Calcium 10.5 mg/dL (8.5-10.1) H 11/30/21 04:12 Total Bilirubin 0.20 mg/dL (0.2-1.0) 11/30/21 04:12 AST 8 Units/L (15-37) L 11/30/21 04:12 ALT 8 Units/L (12-78) L 11/30/21 04:12 Alkaline Phosphatase 91 Units/L (46-116) 11/30/21 04:12 Total Protein 7.6 g/dL (6.4-8.2) 11/30/21 04:12 Albumin 1.7 g/dL (3.4-5.0) L 11/30/21 04:12 Globulin 5.9 g/dL (2.5-4.5) H 11/30/21 04:12 Albumin/Globulin Ratio 0.3 Ratio (1.1-2.1) L 11/30/21 04:12 Specimen Type Clean catch urine 11/25/21 18:11 Urine Color Pale yellow (YELLOW) 11/25/21 18:11 Urine Appearance Clear (CLEAR) 11/25/21 18:11 Urine pH 6.0 (5.0 - 8.0) 11/25/21 18:11 Ur Specific [place] 1.020 (1.000-1.030) 11/25/21 18:11 Urine Protein 3+ (NEGATIVE) 11/25/21 18:11 Urine Glucose (UA) 4+ (NEGATIVE) 11/25/21 18:11 Urine Ketones 1+ (NEGATIVE) 11/25/21 18:11 Urine Blood 4+ (NEGATIVE) 11/25/21 18:11 Urine Nitrite Negative (NEGATIVE) 11/25/21 18:11 Urine Bilirubin Negative (NEGATIVE) 11/25/21 18:11 Urine Urobilinogen Normal (NORMAL) 11/25/21 18:11 Ur Leukocyte Esterase Negative (NEGATIVE) 11/25/21 18:11 Urine RBC 5-10 /HPF (0-3) A 11/25/21 18:11 Urine WBC None seen /HPF (0-5) 11/25/21 18:11 Ur Squamous Epith Cells Rare /HPF (NEGATIVE) 11/25/21 18:11 Urine Bacteria Trace /HPF (NEGATIVE) 11/25/21 18:11 Urine Yeast Few /HPF (NEGATIVE) 11/25/21 18:11 Ur Culture Indicated? No/not indicated 11/25/21 18:11 SARS-CoV-2 (PCR) Negative (NEGATIVE) 11/25/21 17:11 Influenza Type A (PCR) Negative (NEGATIVE) 11/25/21 17:11 Influenza Type B (PCR) Negative (NEGATIVE) 11/25/21 17:11 RSV (PCR) Negative (NEGATIVE) 11/25/21 17:11 Plan (1) Neutrophilic leukocytosis: Status: Acute Plan: Continue IV abx (2) Acute hyponatremia: Status: Resolved Plan: Change normal saline IV fluid to KVO today. (3) Dehydration: Status: Acute Plan: Continue patient IV fluid to KVO. (4) Diabetes mellitus type 2, insulin dependent: Status: Acute Plan: I will add Levemir 10 units subcutaneous every 12 hours for better blood sugar control this morning. (5) Diabetic peripheral neuropathy: Status: Acute Plan: I am starting the patient on gabapentin 300 mg every 8 hours for his peripheral neuropathy. (6) Acute cystitis: Status: Acute Plan: Continue IV linezolid for Staphylococcus saprophyticus. (7) Open wound of left great toe: Status: Acute Plan: Follow-up wound culture and continue with IV linezolid and IV ciprofloxacin and p.o. rifampin.
[2021-11-30] MEDS: SNACK - Diabetic Appropriate PO SCH (20:40)
[2021-12-01] MEDS: NEURONTIN CAP 300 MG PO SCH (05:10)
[2021-12-01] MEDS: NovoLIN R (or HumuLIN R) SUBCUT PRN (05:11)
[2021-12-01 06:07] LABS: BASOPHILS # (AUTO) 0.1 X10^3/uL (0.0-0.1); EOSINOPHILS # (AUTO) 0.3 x10^3/uL (0.0-0.2); EOSINOPHILS % (AUTO) 2.2 % (0.9-2.9); HEMATOCRIT 27.7 % (42.0-54.0); HEMOGLOBIN 9.3 g/dL (13.5-18.0); LYMPHOCYTES # (AUTO) 2.2 X10^3/uL (1.3-2.9); MEAN CORPUSCULAR HGB CONC 33.5 g/dL (33.0-35.0); MEAN CORPUSCULAR VOLUME 83.4 fL (80.0-100.0); MEAN PLATELET VOLUME 8.5 fL (7.4-11.0); MONOCYTES # (AUTO) 0.8 x10^3/uL (0.3-0.8); MONOCYTES % (AUTO) 6.8 % (0.0-13.0); NEUTROPHILS # (AUTO) 8.7 x10^3/uL (2.2-4.8); RED BLOOD COUNT 3.32 X10^6/uL (4.7-6.0)
[2021-12-01 06:27] LABS: ALANINE AMINOTRANSFERASE 8 Units/L (12-78); ALKALINE PHOSPHATASE 110 Units/L (46-116); ASPARTATE AMINO TRANSFERASE 12 Units/L (15-37); BLOOD UREA NITROGEN 13 mg/dL (7-18); CALCIUM 8.7 mg/dL (8.5-10.1); CARBON DIOXIDE 28.8 mmol/L (21-32); CHLORIDE 99 mmol/L (98-107); COR CA(FOR HYPOALB) 10.3 mg/dL (8.5-10.1); COR NA(FOR HYPERGLY) 141 mmol/L (136-145); SODIUM 134 mmol/L (136-145); TOTAL PROTEIN 7.6 g/dL (6.4-8.2); eGFR NON BLACK RACES > 60 (>60)
[2021-12-01] MEDS: CIPRO IV 400 MG PREMIX* 400 MG/200 ML IV.SOLN. IV SCH (09:25)
[2021-12-01] MEDS: ZYVOX 600MG IV 600 MG/300 ML BAG IV SCH (09:25)
[2021-12-01] MEDS: RIFADIN PO SCH (09:30)
[2021-12-01] MEDS: LEVEMIR SC SCH (09:31)
[2021-12-01 13:56] VITALS: BP 105/57
== END 2021-12-01 13:45 | disposition home or self-care (01) | DRG 690 ==
LOC: ER 16:51 → MED/SURG 21:41
PROVIDERS: ADMIT Family Medicine; ATTEND Family Medicine
DX: E86.0 Dehydration; N30.00 Acute cystitis without hematuria; E11.65 Type 2 diabetes mellitus with hyperglycemia; E87.1 Hypo-osmolality and hyponatremia; R60.0 Localized edema; E11.621 Type 2 diabetes mellitus with foot ulcer; B95.7 Other staphylococcus as the cause of diseases classified elsewhere; Z91.81 History of falling; R26.81 Unsteadiness on feet; Z20.822 Contact with and (suspected) exposure to COVID-19; E11.42 Type 2 diabetes mellitus with diabetic polyneuropathy; L97.529 Non-pressure chronic ulcer of other part of left foot with unspecified severity; Z79.4 Long term (current) use of insulin